=== PATIENT | male | born 1945 | race Caucasian/White ===

== ENCOUNTER 2018-05-11 08:06 | Outpatient (REF) | payer OTHER, SELFPAY ==
[2018-05-11 22:18] LABS: Abs Immature Grans 0.01 k/cumm (0.0-0.09); Absolute Basophil Count 0.03 k/cumm (0.0-0.2); Absolute Eosinophil Count 0.11 k/cumm (0.0-0.7); Absolute Lymphocyte Count 1.44 k/cumm (1.2-3.4); Absolute Monocyte Count 0.37 k/cumm (0.11-0.7); Absolute Neutrophil Count 3.04 k/cumm (1.2-6.7); Basophils % 0.6; Eosinophils % 2.2; HCT 52.7 % (40.0-50.0); HGB 17.3 g/dL (13.5-17.5); Immature Grans % 0.2; Lymphocytes % 28.8; Mean Corp. HGB Concentration 32.8 g/dL (32.0-36.0); Mean Corpuscular Hemoglobin 32.3 pg (27.0-33.0); Mean Corpuscular Volume 98.5 fL (80-95); Mean Platelet Volume 13.1 fL (8.0-11.0); Monocytes % 7.4; Neutrophils % 60.8; Platelet Count 141 x1000/uL (130-400); RBC 5.35 m/cumm (4.50-6.00); RBC Distribution Width 13.4 % (11.8-14.1)
[2018-05-11 22:23] LABS: ALT 40 U/L (12-78); AST 28 U/L (15-37); Albumin 4.1 g/dL (3.4-5.0); Alkaline Phosphatase 74 U/L (46-116); Anion Gap 7.8 mmol/L (3-11); BUN 20 mg/dL (7-18); Bilirubin, Total 0.9 mg/dL (0.2-1.0); CO2 29.2 mmol/L (21.0-32.0); CREATININE 1.07 mg/dL (0.70-1.30); Calcium 8.9 mg/dL (8.5-10.1); Chloride 103 mmol/L (98-107); Glucose 84 mg/dL (70-100); Potassium 3.5 mmol/L (3.5-5.1); Sodium 140 mmol/L (136-145); Total Protein 6.9 g/dL (6.4-8.2)
[2018-05-13 09:38] LABS: CEA 1.5 ng/ml
== END 2018-05-11 08:07 ==
LOC: LBN 08:06
PROVIDERS: PCP Internal Medicine; Visit Provider Internal Medicine Hematology & Oncology
DX: C18.9 Malignant neoplasm of colon, unspecified (principal)
CPT/HCPCS: 80053; 82378; 85025

== ENCOUNTER 2018-05-28 00:13 | Outpatient (CLI) | payer OTHER, SELFPAY ==
[2018-05-28] MEDS: Breeza Beverage 473 ML BTL PO ×2 (07:44→07:45)
[2018-05-28] MEDS: Omnipaque 350 MG/ML 50 ML BTL PO (07:44)
--- NOTE | 2018-05-28 09:38 | DI.CT_ITS ---
SYMPTOM/DIAGNOSIS: H/O COLON CA, S/P RT HEMICOLECTOMY, RESTAGING EXAMINATION CHEST, ABDOMEN AND PELVIC CT: Comparison is made with 10/10/16. Images were performed from the clavicles through the ischial tuberosities after IV and oral contrast. CHEST: No adenopathy, infiltrates or effusions are seen. No pulmonary nodules are identified. The pulmonary arteries are well opacified with IV contrast and no pulmonary emboli are seen. No suspicious bony abnormalities are seen. ABDOMEN AND PELVIS: There are small stable hyperdensities in the liver and a single hyperdensity in the spleen. The pancreas and adrenals are unremarkable. The patient is status post cholecystectomy. There are non obstructing stones at the lower pole of the left kidney. The prostate is mildly enlarged and presses on the base of the bladder. No focal bladder abnormality is seen. Right colectomy is again noted. No recurrent mass, adenopathy or ascites is seen. The small bowel is unremarkable. There is a small fatty containing hernia above the level of the umbilicus. IMPRESSION: Status post partial right colectomy. No evidence of metastatic disease or recurrent mass.
[2018-05-28] MEDS: Omnipaque 350 MG/ML 100 ML BTL IJ (09:41)
== END 2018-05-28 00:33 ==
PROVIDERS: PCP Internal Medicine; Visit Provider Internal Medicine Hematology & Oncology
DX: C18.2 Malignant neoplasm of ascending colon (principal); Z90.49 Acquired absence of other specified parts of digestive tract; Z98.0 Intestinal bypass and anastomosis status; N40.0 Benign prostatic hyperplasia without lower urinary tract symptoms
CPT/HCPCS: 74177; 71260; J3490; Q9967

== ENCOUNTER 2018-06-22 08:50 | Outpatient (REF) | payer OTHER, SELFPAY ==
[2018-06-22 22:40] LABS: Cholesterol 137 mg/dL (50-200); HDL Cholesterol 34 mg/dL (40-60); LDL CHOLESTEROL 67 mg/dL (<100); Triglyceride 250 mg/dL (30-150)
== END 2018-06-22 09:10 ==
LOC: NCHCN 08:50
PROVIDERS: PCP Internal Medicine; Visit Provider Internal Medicine
DX: I25.10 Atherosclerotic heart disease of native coronary artery without angina pectoris (principal); D75.1 Secondary polycythemia; G47.33 Obstructive sleep apnea (adult) (pediatric)
CPT/HCPCS: 80061; 83721

== ENCOUNTER 2018-07-19 08:26 | Outpatient (REF) | payer OTHER, SELFPAY ==
[2018-07-19 21:11] LABS: Abs Immature Grans 0.03 k/cumm (0.0-0.09); Absolute Basophil Count 0.03 k/cumm (0.0-0.2); Absolute Eosinophil Count 0.15 k/cumm (0.0-0.7); Absolute Lymphocyte Count 1.12 k/cumm (1.2-3.4); Absolute Monocyte Count 0.38 k/cumm (0.11-0.7); Absolute Neutrophil Count 3.37 k/cumm (1.2-6.7); Basophils % 0.6; HCT 47.1 % (40.0-50.0); Immature Grans % 0.6; Mean Corpuscular Hemoglobin 32.5 pg (27.0-33.0); Mean Corpuscular Volume 95.5 fL (80-95); Mean Platelet Volume 12.6 fL (8.0-11.0); Monocytes % 7.5; Neutrophils % 66.3; Platelet Count 145 x1000/uL (130-400); RBC 4.93 m/cumm (4.50-6.00); RBC Distribution Width 12.5 % (11.8-14.1); White Blood Cell Count 5.08 k/cumm (4.4-10.8)
[2018-07-19 21:54] LABS: ALT 49 U/L (12-78); AST 24 U/L (15-37); Albumin 3.5 g/dL (3.4-5.0); Alkaline Phosphatase 69 U/L (46-116); Anion Gap 6.4 mmol/L (3-11); BUN 25 mg/dL (7-18); Bilirubin, Total 0.9 mg/dL (0.2-1.0); CO2 31.6 mmol/L (21.0-32.0); CREATININE 0.95 mg/dL (0.70-1.30); Calcium 8.7 mg/dL (8.5-10.1); Chloride 101 mmol/L (98-107); Glucose 123 mg/dL (70-100); Potassium 3.6 mmol/L (3.5-5.1); Sodium 139 mmol/L (136-145); Total Protein 6.2 g/dL (6.4-8.2)
[2018-07-21 10:01] LABS: CEA 1.5 ng/ml
== END 2018-07-19 08:46 ==
LOC: LBN 08:26
PROVIDERS: PCP Internal Medicine; Visit Provider Internal Medicine Hematology & Oncology
DX: C18.2 Malignant neoplasm of ascending colon (principal)
CPT/HCPCS: 80053; 82378; 85025

== ENCOUNTER 2018-11-22 07:52 | Outpatient (REF) | payer OTHER, SELFPAY ==
[2018-11-22 21:04] LABS: Abs Immature Grans 0.02 k/cumm (0.0-0.09); Absolute Basophil Count 0.03 k/cumm (0.0-0.2); Absolute Eosinophil Count 0.18 k/cumm (0.0-0.7); Absolute Lymphocyte Count 1.22 k/cumm (1.2-3.4); Absolute Monocyte Count 0.47 k/cumm (0.11-0.7); Absolute Neutrophil Count 3.12 k/cumm (1.2-6.7); Basophils % 0.6; Eosinophils % 3.6; HCT 51.4 % (40.0-50.0); HGB 17.7 g/dL (13.5-17.5); Immature Grans % 0.4; Lymphocytes % 24.2; Mean Corp. HGB Concentration 34.4 g/dL (32.0-36.0); Mean Corpuscular Hemoglobin 32.2 pg (27.0-33.0); Mean Corpuscular Volume 93.6 fL (80-95); Mean Platelet Volume 13.2 fL (8.0-11.0); Monocytes % 9.3; Neutrophils % 61.9; Platelet Count 158 x1000/uL (130-400); RBC 5.49 m/cumm (4.50-6.00); RBC Distribution Width 12.4 % (11.8-14.1); White Blood Cell Count 5.04 k/cumm (4.4-10.8)
[2018-11-22 21:08] LABS: ALT 47 U/L (12-78); AST 27 U/L (15-37); Albumin 3.9 g/dL (3.4-5.0); Alkaline Phosphatase 80 U/L (46-116); Anion Gap 8.7 mmol/L (3-11); BUN 25 mg/dL (7-18); Bilirubin, Total 0.7 mg/dL (0.2-1.0); CO2 31.3 mmol/L (21.0-32.0); CREATININE 0.98 mg/dL (0.70-1.30); Calcium 8.7 mg/dL (8.5-10.1); Chloride 102 mmol/L (98-107); Glucose 123 mg/dL (70-100); Potassium 4.1 mmol/L (3.5-5.1); Sodium 142 mmol/L (136-145); Total Protein 6.6 g/dL (6.4-8.2)
[2018-11-25 15:05] LABS: CEA 2.9 ng/ml
== END 2018-11-22 08:12 ==
LOC: LBN 07:52
PROVIDERS: PCP Internal Medicine; Visit Provider Internal Medicine Hematology & Oncology
DX: D75.1 Secondary polycythemia (principal); Z85.038 Personal history of other malignant neoplasm of large intestine
CPT/HCPCS: 80053; 82378; 85025

== ENCOUNTER 2018-12-01 01:19 | Outpatient (CLI) | payer OTHER, SELFPAY ==
[2018-12-01] MEDS: Breeza Beverage 473 ML BTL PO ×2 (08:41→08:42)
[2018-12-01] MEDS: Omnipaque 350 MG/ML 50 ML BTL PO (08:42)
[2018-12-01] MEDS: Omnipaque 350 MG/ML 100 ML BTL IJ (10:08)
--- NOTE | 2018-12-01 10:08 | DI.CT_ITS ---
SYMPTOM/DIAGNOSIS: COLON CA, C18.2, F/U EXAM CHEST, ABDOMEN AND PELVIC CT: Comparison is made with 05/28/18. CT scan of the chest, abdomen and pelvis was performed following oral and intravenous contrast material. ABDOMEN AND PELVIS: There are stable tiny hypodense lesions in the liver, likely reflecting cysts. No suspicious hepatic masses are seen. The portal, superior mesenteric and splenic veins are patent. The patient is status post cholecystectomy. No significant biliary ductal dilatation is present. The pancreas is unremarkable. There is a stable hypodense lesion seen in the spleen. There is no evidence of an adrenal mass. The kidneys show normal and symmetric enhancement. No evidence of a solid renal mass or obstruction. There is a stable non obstructing in the lower pole of the left kidney. The urinary bladder is intact. The reproductive organs are unremarkable. There is atherosclerosis of the abdominal aorta but no aneurysmal dilatation is present. No significant abdominal or pelvic adenopathy, ascites or pneumoperitoneum is present. Post surgical changes are seen in the right colon. No evidence of bowel obstruction is seen. No evidence of a recurrent mass or inflammatory or infectious process is seen in the bowel. There is a large amount of stool seen in the colon. The portal, superior mesenteric and splenic veins are patent. Small fat containing anterior abdominal wall hernia are noted. There is a stable sclerotic focus in the left iliac bone, likely reflecting a bone island. 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 No aggressive osseous lesions are seen. Degenerative changes are present in the spine. IMPRESSION: No evidence of recurrent abdominal or pelvic mass. No evidence of abdominal or pelvic metastatic disease. CHEST: There is atherosclerosis of the thoracic aorta. The heart is mildly enlarged. No significant pericardial effusion is seen. Coronary artery calcifications are present. No significant thoracic adenopathy is present. No pleural effusion or pneumothorax is identified. No non calcified pulmonary nodules are seen. Dependent atelectatic changes are seen in the lungs. No focal consolidating infiltrates are present. The tracheobronchial tree is unremarkable. Degenerative changes are seen in the spine. No aggressive osseous lesions are present. IMPRESSION: No evidence of thoracic metastatic disease.
[2018-12-01] MEDS: Normal Saline Flush 10 ML SYR IVP (10:10)
== END 2018-12-01 01:39 ==
PROVIDERS: PCP Internal Medicine; Visit Provider Nurse Practitioner Adult Health
DX: C18.2 Malignant neoplasm of ascending colon (principal); K76.89 Other specified diseases of liver; K43.9 Ventral hernia without obstruction or gangrene; I51.7 Cardiomegaly; Z12.89 Encounter for screening for malignant neoplasm of other sites
CPT/HCPCS: 74177; 71260; J3490; Q9967

== ENCOUNTER 2018-12-20 10:24 | Outpatient (REF) | payer OTHER, SELFPAY ==
[2018-12-20 20:51] LABS: Abs Immature Grans 0.02 k/cumm (0.0-0.09); Absolute Basophil Count 0.02 k/cumm (0.0-0.2); Absolute Eosinophil Count 0.12 k/cumm (0.0-0.7); Absolute Lymphocyte Count 1.08 k/cumm (1.2-3.4); Absolute Monocyte Count 0.38 k/cumm (0.11-0.7); Absolute Neutrophil Count 3.06 k/cumm (1.2-6.7); Basophils % 0.4; Eosinophils % 2.6; HCT 47.9 % (40.0-50.0); HGB 16.4 g/dL (13.5-17.5); Immature Grans % 0.4; Lymphocytes % 23.1; Mean Corp. HGB Concentration 34.2 g/dL (32.0-36.0); Mean Corpuscular Hemoglobin 31.9 pg (27.0-33.0); Mean Corpuscular Volume 93.2 fL (80-95); Mean Platelet Volume 13.1 fL (8.0-11.0); Monocytes % 8.1; Neutrophils % 65.4; Platelet Count 156 x1000/uL (130-400); RBC 5.14 m/cumm (4.50-6.00); RBC Distribution Width 12.6 % (11.8-14.1); White Blood Cell Count 4.68 k/cumm (4.4-10.8)
== END 2018-12-20 10:44 ==
LOC: LBN 10:24
PROVIDERS: PCP Internal Medicine; Visit Provider Internal Medicine Hematology & Oncology
DX: D75.1 Secondary polycythemia (principal); Z85.038 Personal history of other malignant neoplasm of large intestine
CPT/HCPCS: 85025

== ENCOUNTER 2019-03-22 11:55 | Outpatient (REF) | payer OTHER, SELFPAY ==
[2019-03-22 21:37] LABS: Abs Immature Grans 0.01 k/cumm (0.0-0.09); Absolute Basophil Count 0.04 k/cumm (0.0-0.2); Absolute Eosinophil Count 0.14 k/cumm (0.0-0.7); Absolute Lymphocyte Count 1.29 k/cumm (1.2-3.4); Absolute Monocyte Count 0.45 k/cumm (0.11-0.7); Basophils % 0.8; Eosinophils % 2.7; HCT 49.8 % (40.0-50.0); Immature Grans % 0.2; Lymphocytes % 25.1; Mean Corp. HGB Concentration 34.1 g/dL (32.0-36.0); Mean Corpuscular Volume 93.6 fL (80-95); Monocytes % 8.8; Neutrophils % 62.4; Platelet Count 148 x1000/uL (130-400); RBC 5.32 m/cumm (4.50-6.00); RBC Distribution Width 12.3 % (11.8-14.1); White Blood Cell Count 5.13 k/cumm (4.4-10.8)
[2019-03-22 22:23] LABS: ALT 46 U/L (12-78); AST 20 U/L (15-37); Albumin 4.1 g/dL (3.4-5.0); Alkaline Phosphatase 81 U/L (46-116); Anion Gap 8.3 mmol/L (3-11); BUN 23 mg/dL (7-18); Bilirubin, Total 1.2 mg/dL (0.2-1.0); CO2 29.7 mmol/L (21.0-32.0); CREATININE 0.91 mg/dL (0.70-1.30); Calcium 9.2 mg/dL (8.5-10.1); Chloride 102 mmol/L (98-107); Glucose 117 mg/dL (70-100); Sodium 140 mmol/L (136-145); Total Protein 6.7 g/dL (6.4-8.2)
[2019-03-24 09:26] LABS: CEA 2.5 ng/ml
== END 2019-03-22 12:15 ==
LOC: LBN 11:55
PROVIDERS: PCP Internal Medicine; Visit Provider Internal Medicine Hematology & Oncology
DX: D75.1 Secondary polycythemia (principal); Z85.038 Personal history of other malignant neoplasm of large intestine
CPT/HCPCS: 80053; 82378; 85025

== ENCOUNTER 2019-03-25 15:12 | Outpatient (CLI) | payer OTHER, SELFPAY ==
[2019-03-25 16:15] LABS: Bilirubin, Direct 0.18 mg/dL (0.00-0.20); Bilirubin, Total 0.8 mg/dL (0.2-1.0)
== END 2019-03-25 15:32 ==
PROVIDERS: PCP Internal Medicine; Visit Provider Internal Medicine Hematology & Oncology
DX: E80.6 Other disorders of bilirubin metabolism (principal); C18.2 Malignant neoplasm of ascending colon
CPT/HCPCS: 36415; 82247; 82248

== ENCOUNTER 2019-05-02 16:48 | Outpatient (REF) | payer OTHER, SELFPAY ==
[2019-05-02 21:33] LABS: Calculated LDL 57 mg/dL; Cholesterol 136 mg/dL (50-200); HDL Cholesterol 33 mg/dL (40-60); TSH (W/Ref FT4) 2.31 uIU/mL (0.36-3.74); Triglyceride 231 mg/dL (30-150)
== END 2019-05-02 17:08 ==
LOC: NCHCN 16:48
PROVIDERS: PCP Internal Medicine; Visit Provider Internal Medicine
DX: I25.10 Atherosclerotic heart disease of native coronary artery without angina pectoris (principal); R53.83 Other fatigue
CPT/HCPCS: 80061; 83721; 84443

== ENCOUNTER → 2019-05-09 09:59 | Outpatient (BNVA) | payer OTHER, SELFPAY | PROVIDERS: PCP Internal Medicine; Referring Provider Internal Medicine; Visit Provider Physical Therapy Assistant | DX: Z12.11 Encounter for screening for malignant neoplasm of colon (principal); Z85.038 Personal history of other malignant neoplasm of large intestine ==

== ENCOUNTER 2019-05-30 09:00 | Day surgery (SDC) | payer OTHER, SELFPAY ==
--- NOTE | 2019-05-30 06:40 | W.COLOREPORT ---
Date of service: 05/30/19 Time of Service: 10:13 Colonoscopy Report Date of procedure: 05/30/19 Pre-op diagnosis general: Hx of colon Cancer Post-op diagnosis procedure note: same (and small polyp and moderate diverticulosis of descending and sigmoid colon) Procedure: Colonoscopy with polypectomy by forceps Surgeon: Kay Burgess Anesthesia proc note operative: other (General/ ASA 2/Scotty Ernst, MAURICE) Estimated blood loss (mL): 3 Pathology: other (descending polyp) Complications: None Disposition: same day Indications: Mr. Anguiano is a pleasant 74 year old male with a personal history of Colon Cancer. His last surveillance colonoscopy was normal. Risks, benefits and complications have been reviewed. Complications include but are not limited to bleeding, pain, perforation, missed small lesion/polyp, sore throat, aspiration and adverse reaction to the medications. Questions were entertained and answered to their satisfaction and they wished to proceed. No guarantees were given or implied. Prep: Miralax/Dulcolax Procedure Start Time: 10:13 Procedure End Time: 10:49 Retraction Time: 9 minutes Findings: One small sessile polyp Open anastamosis Moderate Diverticulosis Procedure Description: After informed consent was obtained the patient was taken to the procedure room and placed in a left decubitous position. Monitors were applied and a time out was done. The patients name, date of , procedure, allergies to medications and metal in their body was reviewed. The patient was then sedated. Once sedated and comfortable a rectal exam was done. External exam was normal. Internal exam revealed a normal sphincter tone and no palpable masses. The prostate felt smooth. The scope was then introduced and retro-flexed. No internal hemorrhoids, masses or polyps were identified. The scope was then advanced to the cecum with difficulty due to a tortuous colon. The TI and appendiceal orifice were identified. The prep was adequate. The scope was then slowly retracted over 9 minutes back into the rectum. Polyps were removed with cold forceps in the descending colon. There was moderate diverticulosis of the colon in the descending and sigmoid colon. The scope was removed and the patient was woken up and taken back to Same day surgery in stable condition. The patient tolerated the procedure well and there were no immediate complications. Follow up: The patient should follow up in 3 years unless they develop changes in bowel habits or other new gastrointestinal complaints.
--- NOTE | 2019-05-30 06:42 | W.PM.DSUDISC ---
Discharge Plan Disposition Patient Disposition: HOME Condition: Good Discharge Details Reason For Visit: colonoscopy Attending Provider: Kay Burgess Primary Care Provider: Johana Aguero Home Meds and New Rx's Prescriptions: Continued irbesartan 300 mg tablet 300 mg PO DAILY RF: 0 latanoprost 0.005 % drops 1 drp OP DAILY RF: 0 aspirin [Adult Aspirin Regimen] 81 mg tablet,delayed release (DR/EC) 81 mg PO DAILY RF: 0 chlorthalidone 25 mg tablet 12.5 mg PO DAILY RF: 0 brimonidine 0.025 % drops 1 drp OP QHS PRNRF: 0 simvastatin 40 MG tablet 20 mg PO HS RF: 0 Discontinued polyethylene glycol 3350 17 gram/dose powder 238 g PO ONCE Qty: 238 RF: 0 bisacodyl [Dulcolax (bisacodyl)] 5 mg tablet,delayed release (DR/EC) 5 mg PO ONCE Qty: 4 RF: 0 Discharge Instructions Instructions: Colonoscopy (DC), Diverticulosis (DC) Additional Instructions: Findings: Moderate diverticulosis and one small polyp Follow up: 3 years Please call if you develop: fevers >101.5 Nausea or Vomiting Abdominal pain that is not transient DAY SURGERY UNIT POST ENDOSCOPY INSTRUCTIONS 1. Because there will be medication in your system for the next 24 hours, you may feel a little sleepy. Your coordination will be affected. Therefore: a. Do not drive or operate dangerous equipment for 24 hours. b. Do not drink alcohol beverages for 24 hours (not even beer). c. Plan to go home and rest for the day. 2. Generally there are no restrictions on your activity after a day or so has gone by, but you may feel a bit fatigued for a few days. 3 After you arrive home you may have a light meal and return to a normal diet as you can tolerate it without feeling sick to your stomach. 4. After surgery, you may feel pain or discomfort. This should be only transient, but if it persists please contact your doctor. 5. If there are any questions regarding the findings of your procedure, please feel free to contact your doctor. 6. If you are unable to contact your doctor with a problem, contact the hospital at [phone]. 7. Continue all your regular medications unless directed otherwise. I understand the above instructions and have no questions. Signature of Patient or Responsible Adult Escort Date/Time Name of Responsible Adult Escort Signature of Nurse Date/Time Activity:: Activity as Tolerated Diet:: High Fiber diet Discharge Orders Discharge Orders: Discharge Order (Routine); Ordered 05/30/19 Ordered By: Kay Burgess DS: Diagnosis Discharge Diagnosis (1) S/P colonoscopy: Status: Acute (2) Diverticulosis: Status: Acute
[2019-05-30 09:23] VITALS: BP 146/88; PULSE 44; RESP 16; TEMP 36.1; O2SAT 99
[2019-05-30] MEDS: Lactated Ringers 1,000 ML 80 ML IV (09:38)
--- NOTE | 2019-05-30 10:14 | BOWEL_PTH ---
PATIENT: Michele Anguiano LOC: [facility] U#:[id number] AGE/SX: 74/M ROOM: RE05/30/[address]: Kay Burgess MD : 1945 BED: DIS: 05/30/2019 SPEC #: [id number] RECD: 05/30/19 12:57 STATUS: ANAYA REQ #: [id number] KELTON: 05/30/19 10:[address]: Kay Burgess DEPT: Surgical Specimen RECD BY: Janell Mike ENTERED: 05/30/19 12:58 SP TYPE: Bowel OTHR DR: Johana Aguero Tissues: 1 - BIOPSY BOWEL Procedures: GROSS AND MICRO LEVEL 4 Comments: [id number]
[2019-05-30 11:37] VITALS: BP 99/65; PULSE 60; RESP 16; TEMP 36; O2SAT 94
== END 2019-05-30 12:00 | disposition home or self-care (01) ==
LOC: SUR 09:01
PROVIDERS: PCP Internal Medicine; Visit Provider Surgery
PROC: 0DJD8ZZ Inspection of Lower Intestinal Tract, Via Natural or Artificial Opening Endoscopic (ICD-10-PCS; CPT 45378; principal; 2019-05-30 10:15)
DX: Z12.11 Encounter for screening for malignant neoplasm of colon (principal); K63.5 Polyp of colon; Z85.038 Personal history of other malignant neoplasm of large intestine; K57.30 Diverticulosis of large intestine without perforation or abscess without bleeding; Z90.49 Acquired absence of other specified parts of digestive tract; Z98.0 Intestinal bypass and anastomosis status; K63.89 Other specified diseases of intestine
CPT/HCPCS: 45380; 88305

== ENCOUNTER 2019-10-10 14:39 | Outpatient (REF) | payer OTHER, SELFPAY ==
[2019-10-10 21:33] LABS: Abs Immature Grans 0.01 k/cumm (0.0-0.09); Absolute Basophil Count 0.03 k/cumm (0.0-0.2); Absolute Eosinophil Count 0.08 k/cumm (0.0-0.7); Absolute Monocyte Count 0.38 k/cumm (0.11-0.7); Absolute Neutrophil Count 3.36 k/cumm (1.2-6.7); Basophils % 0.6; Eosinophils % 1.5; HCT 49.6 % (40.0-50.0); HGB 16.8 g/dL (13.5-17.5); Immature Grans % 0.2 %; Lymphocytes % 26.6; Mean Corp. HGB Concentration 33.9 g/dL (32.0-36.0); Mean Corpuscular Hemoglobin 31.7 pg (27.0-33.0); Mean Corpuscular Volume 93.6 fL (80-95); Mean Platelet Volume 12.5 fL (8.0-11.0); Monocytes % 7.2; Neutrophils % 63.9; Platelet Count 165 x1000/uL (130-400); RBC Distribution Width 12.4 % (11.8-14.1); White Blood Cell Count 5.26 k/cumm (4.4-10.8)
[2019-10-10 21:58] LABS: ALT 72 U/L (16-63); AST 32 U/L (15-37); Albumin 3.8 g/dL (3.4-5.0); Alkaline Phosphatase 78 U/L (46-116); Anion Gap 6.7 mmol/L (3-11); BUN 16 mg/dL (7-18); Bilirubin, Total 0.7 mg/dL (0.2-1.0); CO2 30.3 mmol/L (21.0-32.0); CREATININE 1.07 mg/dL (0.70-1.30); Calcium 8.8 mg/dL (8.5-10.1); Chloride 107 mmol/L (98-107); Glucose 116 mg/dL (74-106); Potassium 4.1 mmol/L (3.5-5.1); Sodium 144 mmol/L (136-145); Total Protein 6.1 g/dL (6.4-8.2)
[2019-10-13 10:05] LABS: CEA 1.4 ng/mL (See Note)
== END 2019-10-10 14:59 ==
LOC: LBN 14:39
PROVIDERS: PCP Internal Medicine; Visit Provider Internal Medicine Hematology & Oncology
DX: C18.2 Malignant neoplasm of ascending colon (principal)
CPT/HCPCS: 80053; 82378; 85025

== ENCOUNTER 2019-11-11 04:08 | Outpatient (CLI) | payer OTHER, SELFPAY ==
[2019-11-11] MEDS: Breeza Beverage 473 ML BTL PO ×2 (07:54→07:55)
[2019-11-11] MEDS: Omnipaque 350 MG/ML 50 ML BTL PO (07:54)
[2019-11-11 08:30] LABS: ALT 38 U/L (16-63); AST 21 U/L (15-37); Albumin 3.8 g/dL (3.4-5.0); Alkaline Phosphatase 75 U/L (46-116); Anion Gap 5.6 mmol/L (3-11); BUN 12 mg/dL (7-18); Bilirubin, Total 1.4 mg/dL (0.2-1.0); CO2 29.4 mmol/L (21.0-32.0); CREATININE 1.11 mg/dL (0.70-1.30); Calcium 8.4 mg/dL (8.5-10.1); Chloride 107 mmol/L (98-107); Glucose 120 mg/dL (74-106); Potassium 4.2 mmol/L (3.5-5.1); Sodium 142 mmol/L (136-145); Total Protein 6.7 g/dL (6.4-8.2)
[2019-11-11] MEDS: Omnipaque 350 MG/ML 100 ML BTL IJ (09:49)
[2019-11-11] MEDS: Normal Saline - Diluent 50 ML VIAL IV (10:03)
--- NOTE | 2019-11-11 10:03 | DI.CT_ITS ---
EXAM: CT CHEST/ABD/PEL W CLINICAL HISTORY: COLON CA, C18.2, S/P RT HEMICOLECTOMY, ELEVATED ALT, TECHNIQUE: Post IV and oral contrast. COMPARISON: CT CHEST/ABD/PEL W from 12/01/2018 FINDINGS: Chest CT: There is four-chamber cardiac enlargement. There is the coronary arteries are heavily meaghan cified. No pleural or pericardial effusions are seen. The aorta is normal in diameter. There is no evidence of adenopathy. There is mild peripheral fibrosis greater lower lobes posteriorly. No pulmo nary nodules are identified. Are flowing osteophytes in the thoracic spine. No lytic or blastic lesio ns are identified. Abdomen and pelvic CT: The patient is status post cholecystectomy. There is stable mild biliary dilat ation and a stable tiny superior liver cyst. The spleen, pancreas, kidneys and adrenals are unremarka ble. The previously noted cystic lesion in the spleen is has decreased in size. Increased stool seen throughout the colon. There are diverticula of the descending colon. There is no evidence of divertic ulitis. No mass is identified. There is no evidence of obstruction. A diverticulum is seen of the 2n d portion of the duodenum. The small bowel is otherwise unremarkable. The prostate is mildly enlarged . There is mild bladder wall thickening. Is no evidence of adenopathy, free air or free fluid. Ankylo sis of the SI joints are again noted. Degenerative disc changes and facet degenerative changes are se en. The aorta shows mild calcification and is normal in diameter. IMPRESSION: No evidence recurrence or metastatic disease in the abdomen. No evidence of metastatic disease in the chest.
== END 2019-11-11 04:28 ==
PROVIDERS: PCP Internal Medicine; Visit Provider Internal Medicine Hematology & Oncology
DX: C18.2 Malignant neoplasm of ascending colon (principal); I51.7 Cardiomegaly; Z12.89 Encounter for screening for malignant neoplasm of other sites; R74.0 Nonspecific elevation of levels of transaminase and lactic acid dehydrogenase [LDH]; N40.0 Benign prostatic hyperplasia without lower urinary tract symptoms; Z90.49 Acquired absence of other specified parts of digestive tract
CPT/HCPCS: 74177; 80053; 71260; J3490; Q9967

== ENCOUNTER 2019-11-18 13:41 | Outpatient (CLI) | payer OTHER, SELFPAY ==
[2019-11-18 14:05] LABS: Abs Immature Grans 0.02 k/cumm (0.0-0.09); Absolute Basophil Count 0.04 k/cumm (0.0-0.2); Absolute Eosinophil Count 0.17 k/cumm (0.0-0.7); Absolute Lymphocyte Count 1.53 k/cumm (1.2-3.4); Absolute Monocyte Count 0.45 k/cumm (0.11-0.7); Absolute Neutrophil Count 3.34 k/cumm (1.2-6.7); Basophils % 0.7; Eosinophils % 3.1; HCT 50.1 % (40.0-50.0); Immature Grans % 0.4 %; Lymphocytes % 27.6; Mean Corp. HGB Concentration 33.9 g/dL (32.0-36.0); Mean Corpuscular Volume 94.2 fL (80-95); Mean Platelet Volume 11.4 fL (8.0-11.0); Monocytes % 8.1; Neutrophils % 60.1; Platelet Count 182 x1000/uL (130-400); RBC 5.32 m/cumm (4.50-6.00); RBC Distribution Width 12.4 % (11.8-14.1); White Blood Cell Count 5.55 k/cumm (4.4-10.8)
[2019-11-18 14:23] LABS: ALT 34 U/L (16-63); AST 22 U/L (15-37); Albumin 3.7 g/dL (3.4-5.0); Alkaline Phosphatase 74 U/L (46-116); Anion Gap 7.2 mmol/L (3-11); BUN 21 mg/dL (7-18); Bilirubin, Direct 0.18 mg/dL (0.00-0.20); Bilirubin, Total 0.5 mg/dL (0.2-1.0); CO2 29.8 mmol/L (21.0-32.0); CREATININE 0.89 mg/dL (0.70-1.30); Calcium 8.4 mg/dL (8.5-10.1); Chloride 107 mmol/L (98-107); Glucose 110 mg/dL (74-106); Potassium 4.1 mmol/L (3.5-5.1); Sodium 144 mmol/L (136-145); Total Protein 6.6 g/dL (6.4-8.2)
== END 2019-11-18 14:01 ==
PROVIDERS: PCP Internal Medicine; Visit Provider Internal Medicine Hematology & Oncology
DX: C18.2 Malignant neoplasm of ascending colon (principal); R17 Unspecified jaundice
CPT/HCPCS: 36415; 80053; 82248; 85025

== ENCOUNTER 2020-04-09 10:24 | Outpatient (REF) | payer OTHER, SELFPAY ==
[2020-04-09 22:23] LABS: Glucose 115 mg/dL (74-106)
[2020-04-09 22:38] LABS: Hemoglobin A1C 5.7 % (3.8-5.6)
== END 2020-04-09 10:44 ==
LOC: NCHCN 10:24
PROVIDERS: PCP Internal Medicine; Visit Provider Internal Medicine
DX: Z00.00 Encounter for general adult medical examination without abnormal findings (principal); R73.09 Other abnormal glucose
CPT/HCPCS: 82947; 83036

== ENCOUNTER 2020-05-22 13:11 | Outpatient (REF) | payer OTHER, SELFPAY ==
[2020-05-22 21:20] LABS: Abs Immature Grans 0.01 10^3/uL (0.0-0.06); Absolute Basophil Count 0.04 10^3/uL (0.0-0.2); Absolute Eosinophil Count 0.08 10^3/uL (0.0-0.7); Absolute Lymphocyte Count 1.32 10^3/uL (1.2-3.4); Absolute Monocyte Count 0.47 10^3/uL (0.1-0.8); Absolute Neutrophil Count 3.68 10^3/uL (1.2-6.7); Basophils % 0.7; Eosinophils % 1.4; HCT 49.1 % (40.0-50.0); HGB 16.8 g/dL (13.5-17.5); Immature Grans % 0.2; Lymphocytes % 23.6; MCH 32.4 pg (27.0-33.0); MCHC 34.2 % (32.0-36.0); MCV 94.8 fL (80-95); MPV 12.8 fL (8.0-11.0); Monocytes % 8.4; Neutrophils % 65.7; Nucleated RBC 0 %; Platelet Count 143 10^3/uL (130-400); RBC 5.18 10^6/uL (4.36-5.78); RDW 12.1 % (11.8-14.1); RDW-SD 41.9 fL
[2020-05-22 21:36] LABS: ALT 35 U/L (16-63); AST 20 U/L (15-37); Albumin 3.8 g/dL (3.4-5.0); Alkaline Phosphatase 79 U/L (46-116); BUN 17 mg/dL (7-18); Bilirubin, Total 1.1 mg/dL (0.2-1.0); Calcium 8.7 mg/dL (8.5-10.1); Chloride 105 mmol/L (98-107); Glucose 127 mg/dL (74-106); Potassium 4.6 mmol/L (3.5-5.1); Sodium 139 mmol/L (136-145); Total Protein 6.2 g/dL (6.4-8.2)
[2020-05-23 19:29] LABS: CEA 2.2 ng/mL (See Note)
== END 2020-05-22 13:31 ==
LOC: LBN 13:11
PROVIDERS: PCP Internal Medicine; Visit Provider Internal Medicine Hematology & Oncology
DX: C18.2 Malignant neoplasm of ascending colon (principal)
CPT/HCPCS: 80053; 82378; 85025

== ENCOUNTER 2020-06-08 04:17 | Outpatient (CLI) | payer OTHER, SELFPAY ==
--- NOTE | 2020-06-08 08:30 | DI.CT_ITS ---
EXAM: CT CHEST/ABD/PEL W CLINICAL HISTORY: COLON CA,C18.2,S/P RT HEMICOLECTOMY,NEW WT LOSS,RESTAGING EXAM TECHNIQUE: Imaging Protocol: Axial computed tomography images with coronal and sagittal reformatted images were created and reviewed CONTRAST MATERIAL: Intravenous: Omnipaque 350 Contrast volume:100 mL Oral: Yes CT CHEST ABD PELVIS WITH CONTRAST from 10/31/2015 CT CHEST ABD PELVIS WITH CONTRAST from 10/10/[address] CHEST/ABD/PEL W from 12/01/[address] CHEST/ABD/PEL W from 12/01/[address] CHEST/ABD/PEL W from 11/11/[address] CHEST/ABD/PEL W from 11/11/2019 FINDINGS: CHEST: Tracheobronchial tree: Patent where visualized. Mediastinum and Falguni: No dominant adenopathy or fluid collection. Pulmonary parenchyma: No consolidation or dominant measurable mass. No architectural distortion. Mild atelectasis is seen in the lung bases. Pleura: No effusion or pneumothorax. Heart: Mild cardiomegaly. Marked coronary artery calcification. Significant pericardial effusion. Aorta: Thoracic aorta non-dilated. Atherosclerosis. Lymph nodes: Within normal limits. Bones:Degenerative changes. Soft tissues: Unremarkable. ABDOMEN: Liver: Normal density. There are stable cysts within the liver. Portal, Superior Mesenteric, and Splenic Veins: Unremarkable. Gallbladder and Biliary Tract: Status post cholecystectomy. Stable mild biliary ductal dilatation. Pancreas: Normal density, no abnormal calcifications or inflammatory process. Spleen: Normal. Adrenals: No masses seen. Kidneys: Normal size, contour and axis. There is a nonobstructing 1 cm stone in the lower pole of the left kidney. No masses seen. Abdominal Aorta: Abdominal portion non-dilated. Atherosclerosis. Bowel: No evidence of bowel obstruction. There is question of wall thickening at the enterocolic lyn stomosis in the right lower quadrant (series 11, image 43 and series 10, image 431). Colonic diverti culosis but no evidence of acute diverticulitis. Peritoneal Cavity: No ascites, collection or mesenteric inflammatory response. Lymph Nodes: Within normal limits. Bones: Ankylosis of the sacroiliac joints. Soft Tissues: Small fat containing umbilical hernia. Nonspecific round 2 x 2 x 2.7 cm hypodense area in the right iliopsoas muscle. PELVIS: Bladder: Symmetric distention, no gross wall thickening. Reproductive Organs: Enlarged prostate gland. Lymph Nodes: Within normal limits. Bones: Degenerative changes. IMPRESSION: 1. No evidence of thoracic metastatic disease. 2. Question of bowel wall thickening at the anastomosis in the right lower quadrant. Barium enema sh ould be considered for further evaluation. 3. Round 2 x 2 x 2.7 cm hypodense area in the right iliopsoas muscle. This is nonspecific. Correlat e with the patient's past medical history. Hematoma or seroma may be considered. Soft tissue mass c annot be excluded. Ultrasound may be considered for further evaluation. RADIATION DOSE DELIVERED: 1,977.81mGy.cm Total DLP DATA REPOSITORY: All CT scans at this facility are submitted to the National Radiology Data Registry (NRDR) Dose Index Registry (DIR) with the [employer] (A[employer]). RADIATION OPTIMIZATION: All CT scans at this facility use at least one of these dose optimization te chniques: automated exposure control; mA and/or kV adjustment per patient size (includes targeted exa ms where dose is matched to clinical indication); or iterative reconstruction.
[2020-06-08] MEDS: Breeza Beverage 473 ML BTL PO ×2 (08:32→08:33)
[2020-06-08] MEDS: Omnipaque 350 MG/ML 50 ML BTL PO (08:32)
[2020-06-08] MEDS: Normal Saline - Diluent 50 ML VIAL IV (10:06)
[2020-06-08] MEDS: Omnipaque 350 MG/ML 100 ML BTL IJ (10:06)
== END 2020-06-08 04:37 ==
PROVIDERS: PCP Internal Medicine; Visit Provider Internal Medicine Hematology & Oncology
DX: C18.2 Malignant neoplasm of ascending colon (principal); R63.4 Abnormal weight loss
CPT/HCPCS: 74177; 71260; J3490; Q9967

== ENCOUNTER 2020-06-22 04:13 | Outpatient (CLI) | payer OTHER, SELFPAY ==
--- NOTE | 2020-06-22 | DI.US_ITS ---
EXAM: US SOFT TISS ABD WALL/LOW BACK CLINICAL HISTORY: MASS OF ILIOPSOAS MUSCLE, M62.89,H/O COLON CA,F/U ABNL CT HYPODENSITY, TECHNIQUE: Ultrasound performed using standard protocol. COMPARISON: CT CT CHEST/ABD/PEL W from 06/08/2020 FINDINGS: Ultrasound examination was performed to evaluate a right ileo psoas mass identified recent abdominal CT. Ultrasound a graphically, this mass lies laterally to the external iliac vessels in the iliopsoa s. Mass measures 41 x 18 x 36 millimeters in diameter and contains predominantly cystic components w ith significant internal debris, dependent solid components may be present as well and the septations the lobulated cystic mass are thickened. IMPRESSION: Indeterminate mixed echogenicity predominantly cystic mass of the right iliopsoas as described above. In the setting of known colon carcinoma, the possibility of metastatic lesion would have to be cons idered, although other etiologies including hematoma are diagnostic possibilities.. Tissue sampling recommended if clinically appropriate, alternatively, PET-CT may be considered. DATA REPOSITORY:
== END 2020-06-22 04:33 ==
PROVIDERS: PCP Internal Medicine; Visit Provider Internal Medicine Hematology & Oncology
DX: M62.89 Other specified disorders of muscle (principal); C18.9 Malignant neoplasm of colon, unspecified
CPT/HCPCS: 76705

== ENCOUNTER → 2020-06-29 10:29 | Outpatient (BNVA) | payer OTHER, SELFPAY | PROVIDERS: PCP Internal Medicine; Referring Provider Internal Medicine; Visit Provider Physical Therapy Assistant | DX: K63.9 Disease of intestine, unspecified (principal); Z86.010 Personal history of colon polyps; Z85.038 Personal history of other malignant neoplasm of large intestine | CPT/HCPCS: 99213 ==

== ENCOUNTER 2020-07-09 09:11 | Day surgery (SDC) | payer OTHER, SELFPAY ==
--- NOTE | 2020-07-09 06:59 | COLE_ITS ---
Date of service: 07/09/20 Time of Service: 10:02 Colonoscopy Report Date of procedure: 07/09/20 Pre-op diagnosis general: Hx of colon cancer , abnormal CT scan Post-op diagnosis procedure note: other (normal colonoscopy) Procedure: Colonoscopy with biopsies Surgeon: Kay Burgess Anesthesia proc note operative: other (General/ ASA 2/Johanna Nelson, MAURICE) Estimated blood loss (mL): 3 Pathology: other (ileo-colic anastamosis bx) Complications: None Disposition: same day Indications: 75 y/o male with history of colon cancer in 2014, presents for colonoscopy pre-op. He is referred for diagnostic Colonoscopy by Dr. Onofre for further work up of findings from a CT scan on 06/10/20 which showed question of bowel wall thickening at the anastomosis in the right lower quadrant. This CT scan showed a hypodense area in the iliopsoas muscle. His last screening Colonoscopy was in 2019, which was remarkable for a small hyperplastic polyp and diverticulosis. He denies a family history of colon cancer. He denies any change s in bowel habits including bloody or black tarry stools, abdominal pain, diarrhea or constipation. He denies constitutional symptoms. Denies use of marijuana or any other recreational or illegal drugs. Prep: Miralax/Dulcolax Procedure Start Time: 10:02 Procedure End Time: 10:49 Retraction Time: 16 minutes Findings: Normal colonoscopy Normal ileocolic anastamosis normal ileum Procedure Description: After informed consent was obtained the patient was taken to the procedure room and placed in a left decubitous position. Monitors were applied and a time out was done. The patients name, date of , p rocedure, allergies to medications and metal in their body was reviewed. The patient was then sedated. Once sedated and comfortable a rectal exam was done. External exam was normal. Internal exam revealed a normal sphincter tone and no palpable masses. The prostate felt normal. The scope was then introduced and retro-flexed. No internal hemorrhoids were identified. The scope was then advanced to the cecum with some difficulty. There was a very sharp corner at the splenic flexure. The ileo-colic anastamosis was identified. The prep was adequate. The scope was advanced through the anas tamosis into the ileum for about 6 cm. The ileum was normal. There were no masses. Biopsies were done of the anastamosis. The anastamosis looked normal. No thickening was identified. The scope was then slowly retracted over 16 minutes back into the rectum. There were no polyps. There was moderate diverticulosis of the descending and sigmoid colon. The tattoo was identified in the distalsigmoid colon/proximal rectum. No polyps were identified. The scope was removed and the patient was woken up and taken back to Same day surgery in stable condition. The patient tolerated the procedure well and there were no immediate complications. Follow up: The patient should follow up in 2 years unless they develop changes in bowel habits or other new gastrointestinal complaints.
--- NOTE | 2020-07-09 07:00 | W.PM.DSUDISC ---
Discharge Plan Disposition Patient Disposition: HOME Condition: Good Discharge Details Reason For Visit: colonoscopy Attending Provider: Kay Burgess Primary Care Provider: Johana Aguero Home Meds and New Rx's Prescriptions: Continued latanoprost 0.005 % drops 1 drp OP DAILY RF: 0 aspirin [Adult Aspirin Regimen] 81 mg tablet,delayed release (DR/EC) 81 mg PO DAILY RF: 0 brimonidine 0.025 % drops 1 drp OP QHS PRNRF: 0 Eliquis 5 mg tablet 5 mg PO BID RF: 0 amlodipine 2.5 mg tablet 2.5 mg PO DAILY RF: 0 hydrochlorothiazide 12.5 mg tablet 12.5 mg PO DAILY RF: 0 losartan 100 mg tablet 100 mg PO DAILY RF: 0 metoprolol tartrate 25 mg tablet 25 mg PO DAILY RF: 0 simvastatin 40 MG tablet 20 mg PO HS RF: 0 Discontinued polyethylene glycol 3350 17 gram/dose powder 238 g PO ONCE Qty: 238 RF: 0 bisacodyl [Dulcolax (bisacodyl)] 5 mg tablet,delayed release (DR/EC) 5 mg PO ONCE Qty: 4 RF: 0 Discharge Instructions Instructions: Diverticulosis (DC) Additional Instructions: Findings: diverticulosis Normal anastamosis No polyps Follow up: 2-3 years Please call if you develop: fevers >101.5 Nausea or Vomiting Abdominal pain that is not transient DAY SURGERY UNIT POST ENDOSCOPY INSTRUCTIONS 1. Because there will be medication in your system for the next 24 hours, you may feel a little sleepy. Your coordination will be affected. Therefore: a. Do not drive or operate dangerous equipment for 24 hours. b. Do not drink alcohol beverages for 24 hours (not even beer). c. Plan to go home and rest for the day. 2. Generally there are no restrictions on your activity after a day or so has gone by, but you may feel a bit fatigued for a few days. 3 After you arrive home you may have a light meal and return to a normal diet as you can tolerate it without feeling sick to your stomach. 4. After surgery, you may feel pain or discomfort. This should be only transient, but if it persists please contact your doctor. 5. If there are any questions regarding the findings of your procedure, please feel free to contact your doctor. 6. If you are unable to contact your doctor with a problem, contact the hospital at [phone]. 7. Continue all your regular medications unless directed otherwise. I understand the above instructions and have no questions. Signature of Patient or Responsible Adult Escort Date/Time Name of Responsible Adult Escort Signature of Nurse Date/Time Activity:: Activity as Tolerated Diet:: High Fiber Diet Discharge Orders Discharge Orders: Discharge Order (Routine); Ordered 07/09/20 Ordered By: Kay Burgess
[2020-07-09 09:33] VITALS: BP 152/97; PULSE 53; RESP 16; TEMP 36.2; O2SAT 100
[2020-07-09] MEDS: Lactated Ringers 1,000 ML 80 ML IV (09:40)
--- NOTE | 2020-07-09 10:37 | BOWEL_PTH ---
PATIENT: Michele Anguiano LOC: [facility] U#:[id number] AGE/SX: 75/M ROOM: RE07/09/[address]: Kay Burgess MD : 1945 BED: DIS: 07/09/2020 SPEC #: [id number] RECD: 07/09/20 11:46 STATUS: ANAYA REQ #: [id number] KELTON: 07/09/20 10:[address]: Kay Burgess DEPT: Surgical Specimen RECD BY: Janell Mike ENTERED: 07/09/20 11:47 SP TYPE: Bowel OTHR DR: Johana Aguero Tissues: 1 - BIOPSY BOWEL Procedures: GROSS AND MICRO LEVEL 4 Comments: [id number]
[2020-07-09 11:32] VITALS: BP 128/97; PULSE 78; RESP 18; TEMP 35.9; O2SAT 98
== END 2020-07-09 11:52 | disposition home or self-care (01) ==
LOC: SUR 09:11
PROVIDERS: PCP Internal Medicine; Visit Provider Surgery
PROC: 0DJD8ZZ Inspection of Lower Intestinal Tract, Via Natural or Artificial Opening Endoscopic (ICD-10-PCS; CPT 45378; principal; 2020-07-09 09:30)
DX: Z85.038 Personal history of other malignant neoplasm of large intestine (principal); D75.1 Secondary polycythemia; Z79.01 Long term (current) use of anticoagulants; Z98.0 Intestinal bypass and anastomosis status
CPT/HCPCS: 45380; 88305; J2001

== ENCOUNTER 2020-07-12 01:28 | Outpatient (CLI) | payer OTHER, SELFPAY ==
--- NOTE | 2020-07-12 07:28 | DI.US_ITS ---
APPROVED REPORT EXAM: Comprehensive 2D, Doppler, and color-flow Echocardiogram Patient Location: Out-Patient Casing Running Machine Tender: Jahaira Simmons RDCS (AE) Indications: Persistent Atrial Fibrillation Other Information Study Quality: Adequate Conclusion Normal left ventricular chamber size and wall thickness. Estimated ejection fraction is 50 to 55%. There are no segmental wall motion abnormalities Normal right ventricular size and systolic function Atria are moderately dilated Trileaflet aortic valve with trace regurgitation Mild mitral annular calcification. There is eccentric moderate mitral regurgitation Structurally normal tricuspid valve with mild regurgitation. Normal estimated right ventricular syst olic pressure Structurally normal pulmonic valve with trace regurgitation Wall motion Left Ventricle The left ventricle is normal size. The left ventricular systolic function is normal. The left ventric ular ejection fraction is within the normal range. There is normal left ventricular wall thickness. T here is normal LV segmental wall motion. There is no ventricular septal defect visualized. LVEF is 50 -55%. Right Ventricle The right ventricle is normal size. The right ventricular systolic function is normal. The RVSP is 24 .1 mmHg. Atria Left atrium is moderately dilated. Right atrium is moderately dilated. The interatrial septum is inta ct with no evidence for an atrial septal defect. Aortic Valve The aortic valve is normal in structure. Aortic valve is trileaflet. There is no aortic valvular sten osis. Trace aortic regurgitation. Mitral Valve Mild mitral annular calcification. No evidence of mitral valve stenosis. Moderate mitral regurgitatio n. Mitral regurgitation jet is eccentrically directed. Tricuspid Valve The tricuspid valve is normal in structure. There is no tricuspid valve stenosis. Mild tricuspid regu rgitation. Pulmonic Valve The pulmonary valve is normal in structure. There is no pulmonic valvular stenosis. Trace pulmonic re gurgitation. Great Vessels Aortic root is moderately dilated. The ascending aorta is mildly dilated. The ascending aorta is mil dly dilated. IVC is normal in size and collapses >50% with inspiration. Pericardium There is no pericardial effusion. 2D Dimensions IVSD d PLAX 1.12 cm M: 0.6-1.2 LV Vol A2C d MOD 150.3 mL LVPW d PLAX 1.16 cm M: 0.6 - 1.2 LV Vol A4C d MOD 161.3 mL LVID d PLAX 4.76 cm M: 4.2 - 5.8 LA vol/ BSA A2C s A-L 46.0 mL/m2 LVDs 3.60 cm M: 2.5 - 4.0 LA vol/ BSA A4C s A-L 45.7 mL/m2 Ao Root d 4.28 cm M: 3.1 - 3.7 LA Vol/ BSA Biplane s A-L 46.6 mL/m2 RA Area A4C 23.69 cm2 LA Area A4C s MOD 29.26 cm2 RA Vol/ BSA A4C s A-L 30.9 mL/m2 LA Area A2C s MOD 28.89 cm2 Ao Asc Diam d 4.10 cm M: 2.6 - 3.4 LV EF A4C MOD 51.5 % LV EF Teichholz 46.7 % LV EF A2C MOD 48.7 % LVEF (Winkler's) 50.24 % M: 52 - 72 LV EF Biplane MOD 50.2 % LV Volume 115.25 mL M: 62 - 150 SV 80.06 mL LV Volume Index 51.45 mL/m2 M: 34 - 74 SV Index 35.74 mL/m2 LV Vol Biplane MOD 159.4 mL FS 23.30 % M-Mode TAPSE 1.76 cm (M/F) >1.7 LV Diastology MV E' medial 0.072 (>0.07 m/s) MV E Vmax 0.75 (0.4-1.3 m/s) LV E/e MED 10.35 (<14) MV E' lateral 0.122 (>0.1 m/s) LV E/e LAT 6.10 (<14) MV E/E' medial 10.40 MV E/E' lateral 6.10 Aortic Valve LVOT Area 4.51 cm2 AoV Area Vmax 3.87 cm2 LVOT Vmax 0.54 m/s AoV Area/ BSA (Vmax) 1.73 cm2/m2 LVOT Mean Long. 0.35 m/s NATHANIEL Mean Long. 3.07 cm2 LVOT Peak Grad 1.2 mmHg NATHANIEL Mean Long. Index 1.37 cm2/m2 LVOT Mean Grad 0.6 mmHg AR DT 2131 msec LVOT VTI 0.089 m AR PHT 618 msec LVOT Diam s 2.35 cm AoV Vmax 0.63 m/s Velocity Ratio 0.85 AoV Mean Long. 0.51 m/s AoV Peak Grad 1.6 mmHg LVOT SV 40.09 mL AoV Mean Grad 1.1 mmHg AoV VTI 0.114 m AoV Area VTI 3.51 cm2 AoV Area/ BSA (VTI) 1.56 cm/m2 Mitral Valve MV DT 208 (160-240 msec) MV PHT 60 msec MV Area PHT 3.64 cm2 Pulmonary Valve PV Vmax 0.77 (0.5-1.5 m/s) RVOT Peak Gr. 0.67 mmHg PV Peak Grad 2.4 mmHg RVOT Mean Gr. 0.35 mmHg PV Mean Grad 1.2 mmHg RVOT VTI 0.082 m PV VTI 0.120 m RVOT Vmax 0.41 m/s Tricuspid Valve TR Peak Grad 21.1 mmHg TR Vmax 2.30 m/s RA Pressure 3.00 mmHg RVSP (TR) 24.1 mmHg
== END 2020-07-12 01:48 ==
PROVIDERS: PCP Internal Medicine; Visit Provider Internal Medicine Cardiovascular Disease
DX: I08.1 Rheumatic disorders of both mitral and tricuspid valves (principal)
CPT/HCPCS: 93306

== ENCOUNTER 2020-07-17 13:27 | Outpatient (REF) | payer OTHER, SELFPAY ==
[2020-07-17 20:55] LABS: Anion Gap 6.8 mmol/L (3-11); BUN 22 mg/dL (7-18); CO2 30.2 mmol/L (21.0-32.0); CREATININE 0.97 mg/dL (0.70-1.30); Calcium 8.8 mg/dL (8.5-10.1); Chloride 103 mmol/L (98-107); Glucose 92 mg/dL (74-106); Potassium 4.2 mmol/L (3.5-5.1); Sodium 140 mmol/L (136-145)
== END 2020-07-17 13:47 ==
LOC: NCHCN 13:27
PROVIDERS: PCP Internal Medicine; Visit Provider Internal Medicine
DX: I10 Essential (primary) hypertension (principal)
CPT/HCPCS: 80048

== ENCOUNTER → 2020-07-24 13:06 | Outpatient (BNVA) | payer OTHER, SELFPAY | PROVIDERS: PCP Internal Medicine; Referring Provider Internal Medicine; Visit Provider Internal Medicine Cardiovascular Disease | DX: I25.2 Old myocardial infarction (principal); I34.0 Nonrheumatic mitral (valve) insufficiency; I48.91 Unspecified atrial fibrillation; Z79.01 Long term (current) use of anticoagulants | CPT/HCPCS: 99203; 99214 ==

== ENCOUNTER → 2020-08-27 13:26 | Outpatient (BNVA) | payer OTHER, SELFPAY | PROVIDERS: PCP Internal Medicine; Referring Provider Internal Medicine; Visit Provider Student in an Organized Health Care Education/Training Program | DX: M16.11 Unilateral primary osteoarthritis, right hip (principal); M24.851 Other specific joint derangements of right hip, not elsewhere classified; Z85.038 Personal history of other malignant neoplasm of large intestine | CPT/HCPCS: 99201; 99441; 99442 ==

== ENCOUNTER 2020-09-19 16:38 | Outpatient (REF) | payer OTHER, SELFPAY ==
[2020-09-19 21:59] LABS: PSA, Screening 0.8 ng/mL (0.0-6.5)
== END 2020-09-19 16:58 ==
LOC: NCHCN 16:38
PROVIDERS: PCP Internal Medicine; Visit Provider Internal Medicine
DX: Z12.5 Encounter for screening for malignant neoplasm of prostate (principal)
CPT/HCPCS: 84153

== ENCOUNTER → 2021-03-05 08:54 | Outpatient (BNVA) | payer OTHER, SELFPAY | PROVIDERS: PCP Internal Medicine; Referring Provider Internal Medicine; Visit Provider Internal Medicine Cardiovascular Disease | DX: I48.11 Longstanding persistent atrial fibrillation (principal); Z79.01 Long term (current) use of anticoagulants; I25.2 Old myocardial infarction; I34.0 Nonrheumatic mitral (valve) insufficiency | CPT/HCPCS: 99214 ==

== ENCOUNTER 2021-03-25 01:16 | Outpatient (CLI) | payer MEDICARE, SELFPAY ==
--- NOTE | 2021-03-25 07:30 | DI.NM_ITS ---
APPROVED REPORT Exam: Exercise Treadmill Patient Location: Out-Patient Room/Bed: Stress Nurse: Krysta Flores RN Ordering Provider:DONALDO KIRBY, Contact Number: [phone] BMI: 28.12 Baseline Rhythm: Atrial Fibrillation Comment: Frequent multifocal PVCs, bigeminy, couplet Indications: Coronary artery disease, atrial fibrillation Medical History Medical History: Atrial fibrillation, hypertension, hyperlipidemia, CVD, PR 2010 w/ stents x3, mitral regurgitation, pulmonary embolism, KRISTIAN w/ CPAP, colon ca, diverticulitis, glaucoma, polycythemia Cardiac Medications: metoprolol tartrate, losartan, simvastatin, aspirin, apixaban, hydrochlorothiazi de Allergies: NKA Cardiac Risk Factors: Hypertension, hyperlipidemia, CVD, family hx Previous Cardiac Procedures: 2009- PCI w/ stents x3 Pretest Chest Pain Characteristics: None Exercise History: Sedentary Physical Disabilities: None Lung Sounds: Clear to auscultation Heart Sounds: Irregular Stress Test Details Test: Exercise stress testing was performed using a Morgan protocol. Nuclear Acquisition: Rest Tc-99m/Stress Tc-99m 1 day Rest Isotope: Tc-99m Sestamibi. Dose: 12.0 Date: 03/25/2021 Injection Time: 0940 Stress Isotope: Tc-99m Sestamibi. Dose: 37.2 Date: 03/25/2021 Injection Time: 1212 HR Resting HR Supine: 90 bpm Max Heart Rate (APMHR): 146.818191 bpm Resting HR Standin bpm Target HR (85% APMHR): 124.748899 bpm Max HR Achieved: 176 bpm % of APMHR: 120.55 Recovery HR: 90 bpm HR response to stress: Normal HR response to stress BP Resting BP Supine: 150/84 mmHg Resting BP Standin/88 mmHg Max BP: 186/74 mmHg Recovery BP: 152/80 mmHg BP response to stress: Normal blood pressure response to stress. ECG Resting ECG: Atrial Fibrillation Ectopy: Frequent multifocal PVCs, bigeminy, couplet Stress ECG: Atrial Fibrillation ST Change: No significant ST segment changes noted Arrhythmia: Frequent multifocal PVCs, couplet Recovery ECG: Atrial Fibrillation Recovery ST Change: No significant ST segment changes noted Recovery Arrhythmia: Frequent multifocal PVCs, couplets, 3 beat run ventricular tachycardia Clinical Reason for Termination: Terminated by stress RN due to AF with RVR Stress Symptoms: General Fatigue Exercise duration: 5 min59 sec Highest Stage Reached: Stage 2: 2.5 mph at 12% grade. Exercise capacity: 7.05 METs Rate Pressure Product: 50165 Stress ECG Conclusion 1. Patient exercised for 5 minutes (7 METS). Exercise was stopped by the nurse due to A. fib with RV R. 2. Patient no symptoms suggestive of ischemia. 3. There is no evidence of ischemia on the ECG portion of the exam. Stress Test Summary STAGE Time (mins) Speed (mph) Grade (%) HR BP SYMPTOMS METS Supine 90 150/84 Standing 86 150/88 SpO2 98% 1 3 1.7 10 140 172/88 SpO2 98% 4.6 2 6 2.5 12 169 SpO2 94% 7 1 min recovery 132 186/74 SpO2 98% 3 min recovery 95 170/78 6 min recovery 90 152/80 MPI Conclusion The patient's ejection fraction was 42% with stress. There were no wall motion abnormalities. There is no evidence of ischemia in the imaging portion of the exam. This represents a normal SPECT stress test. Radiologist Interpretation Radiologist agrees with Feed Management Advisor's Interpretation. Radiologist Interpretation by: Kamila Hightower MD Interpretation Date/Time: 03/26/2021 08:49:23
== END 2021-03-25 01:36 ==
PROVIDERS: PCP Internal Medicine; Visit Provider Internal Medicine Cardiovascular Disease
DX: I25.2 Old myocardial infarction (principal); I48.91 Unspecified atrial fibrillation; I49.3 Ventricular premature depolarization; I47.2 Ventricular tachycardia; R00.8 Other abnormalities of heart beat; I10 Essential (primary) hypertension; E78.5 Hyperlipidemia, unspecified; Z82.49 Family history of ischemic heart disease and other diseases of the circulatory system
CPT/HCPCS: 78452; 93016; 93018; 93017

== ENCOUNTER → 2021-04-05 11:37 | Outpatient (BNVA) | payer OTHER, SELFPAY | PROVIDERS: PCP Internal Medicine; Visit Provider Internal Medicine Cardiovascular Disease | DX: I48.91 Unspecified atrial fibrillation (principal); I34.0 Nonrheumatic mitral (valve) insufficiency; I25.2 Old myocardial infarction; R60.0 Localized edema | CPT/HCPCS: 99214; 99213 ==

== ENCOUNTER → 2021-07-05 11:24 | Outpatient (BNVA) | payer MEDICARE, SELFPAY | PROVIDERS: PCP Internal Medicine; Visit Provider Internal Medicine Cardiovascular Disease | DX: I25.2 Old myocardial infarction (principal); I48.19 Other persistent atrial fibrillation; I34.0 Nonrheumatic mitral (valve) insufficiency; I10 Essential (primary) hypertension; Z79.01 Long term (current) use of anticoagulants | CPT/HCPCS: 99214; 99213 ==

== ENCOUNTER 2021-09-25 15:13 | Outpatient (REF) | payer MEDICARE, SELFPAY ==
[2021-09-25 15:01] LABS: ALT 53 U/L (16-63); AST 29 U/L (15-37); Alkaline Phosphatase 80 U/L (46-116); Anion Gap 6.1 mmol/L (3-11); BUN 17 mg/dL (7-18); Bilirubin, Total 1.1 mg/dL (0.2-1.0); CO2 31.9 mmol/L (21.0-32.0); CREATININE 0.9 mg/dL (0.70-1.30); Calcium 8.9 mg/dL (8.5-10.1); Calculated LDL 45 mg/dL (<100); Chloride 102 mmol/L (98-107); Cholesterol 134 mg/dL (<200); Glucose 108 mg/dL (74-106); HDL Cholesterol 34 mg/dL (40-60); Sodium 140 mmol/L (136-145); Total Protein 6.9 g/dL (6.4-8.2); Triglyceride 277 mg/dL (<150)
[2021-09-25 15:08] LABS: Hemoglobin A1C 5.8 % (<5.7)
== END 2021-09-25 15:14 | disposition home or self-care (01) ==
LOC: NCHCN 15:13
PROVIDERS: PCP Internal Medicine; Visit Provider Internal Medicine
DX: I10 Essential (primary) hypertension (principal); R73.09 Other abnormal glucose; E78.5 Hyperlipidemia, unspecified
CPT/HCPCS: 80053; 80061; 83036

== ENCOUNTER → 2022-01-03 10:31 | Outpatient (BNVA) | payer MEDICARE, SELFPAY | PROVIDERS: PCP Internal Medicine; Visit Provider Internal Medicine Cardiovascular Disease | DX: I10 Essential (primary) hypertension (principal); I48.91 Unspecified atrial fibrillation; I34.0 Nonrheumatic mitral (valve) insufficiency; I25.2 Old myocardial infarction | CPT/HCPCS: 99214; 99213 ==

== ENCOUNTER → 2022-08-04 10:38 | Outpatient (BNVA) | payer MEDICARE, SELFPAY | PROVIDERS: PCP Internal Medicine; Visit Provider Internal Medicine Cardiovascular Disease | DX: R73.03 Prediabetes (principal); R60.0 Localized edema; I25.10 Atherosclerotic heart disease of native coronary artery without angina pectoris; I48.91 Unspecified atrial fibrillation; I10 Essential (primary) hypertension; I34.0 Nonrheumatic mitral (valve) insufficiency; G47.33 Obstructive sleep apnea (adult) (pediatric); I25.2 Old myocardial infarction | CPT/HCPCS: 99214 ==

== ENCOUNTER 2022-12-22 13:23 | Outpatient (REF) | payer MEDICARE, SELFPAY ==
[2022-12-22 20:55] LABS: HGB 16.8 g/dL (13.5-17.5); MCH 32.5 pg (27.0-33.0); MCHC 34.3 % (32.0-36.0); MCV 95 fL (80-95); MPV 12.2 fL (8.0-11.0); Platelet Count 159 10^3/uL (130-400); RBC 5.17 10^6/uL (4.36-5.78); RDW 11.9 % (11.8-14.1); RDW-SD 41.2 fL; WBC 5.07 10^3/uL (4.4-10.8)
[2022-12-22 21:08] LABS: ALT 52 U/L (16-63); AST 35 U/L (15-37); Albumin 3.5 g/dL (3.4-5.0); Alkaline Phosphatase 74 U/L (46-116); Anion Gap 5.4 mmol/L (3-11); BUN 20 mg/dL (7-18); Bilirubin, Total 0.7 mg/dL (0.2-1.0); CO2 27.6 mmol/L (21.0-32.0); CREATININE 0.9 mg/dL (0.70-1.30); Calcium 8.6 mg/dL (8.5-10.1); Calculated LDL 43 mg/dL (<100); Chloride 106 mmol/L (98-107); Cholesterol 137 mg/dL (<200); Estimated GFR 89.07 (mL/min/1.73m2); Glucose 150 mg/dL (74-106); HDL Cholesterol 28 mg/dL (40-60); Potassium 4.2 mmol/L (3.5-5.1); Sodium 139 mmol/L (136-145); Total Protein 6.5 g/dL (6.4-8.2); Triglyceride 333 mg/dL (<150)
[2022-12-22 21:18] LABS: Hemoglobin A1C 6.3 % (<5.7)
== END 2022-12-22 13:24 | disposition home or self-care (01) ==
LOC: NCHCN 13:23
PROVIDERS: PCP Internal Medicine; Visit Provider Internal Medicine
DX: I10 Essential (primary) hypertension (principal); R73.03 Prediabetes; E78.5 Hyperlipidemia, unspecified
CPT/HCPCS: 80053; 80061; 85027; 83036

== ENCOUNTER 2023-01-21 00:56 | Outpatient (CLI) | payer MEDICARE, SELFPAY ==
--- NOTE | 2023-01-21 10:22 | DI.US_ITS ---
APPROVED REPORT EXAM: Comprehensive 2D, Doppler, and color-flow Echocardiogram Patient Location: Out-Patient Clinical Research Specialist: Darwin Cruz RDMS, [place] Indications: check mitral regurg, mukesh, afib Other Information Study Quality: Adequate Conclusion Normal left ventricular wall thickness and chamber size. Ejection fraction is approximately 45%. Th ere is diastolic septal flattening suggesting right ventricular pressure overload Right ventricle is mildly dilated and hypocontractile Both atria are mildly dilated Aortic valve is trileaflet, mildly sclerotic with mild regurgitation Mildly thickened mitral leaflets with mild to moderate regurgitation Normal tricuspid valve with mild regurgitation. Estimated right ventricular systolic pressure is 30 mmHg Mildly dilated aortic root and ascending aorta Wall motion Left Ventricle The left ventricle is normal size. Left ventricular systolic function is mild to moderately decreased . There is normal left ventricular wall thickness. There is global hypokinesis of the left ventricle. Flattened septum consistent with right ventricular pressure overload. There is no ventricular septal defect visualized. LVEF is 45%. Right Ventricle The right ventricle is mildly dilated Right ventricle is mildly hypokinetic. The RVSP is 29.4 mmHg. Atria Left atrium is mildly dilated. Right atrium is mildly dilated. The interatrial septum is intact with no evidence for an atrial septal defect. Aortic Valve The aortic valve is mildly sclerotic Aortic valve is trileaflet. There is no aortic valvular stenosis . Mild aortic regurgitation. Mitral Valve Mildly thickened mitral leaflets No evidence of mitral valve stenosis. Mild to moderate mitral regurg itation. Tricuspid Valve The tricuspid valve is normal in structure. There is no tricuspid valve stenosis. Mild tricuspid regu rgitation. Pulmonic Valve The pulmonary valve is normal in structure. There is no pulmonic valvular stenosis. Trace pulmonic re gurgitation. Great Vessels Aortic root is mildly dilated. The ascending aorta is mildly dilated. Aortic arch is not well visual ized. IVC is normal in size and collapses >50% with inspiration. Pericardium There is no pericardial effusion. 2D Dimensions IVSD d PLAX 1.02 cm M: 0.6-1.2 LV Vol A2C d MOD 136.1 mL LVPW d PLAX 1.05 cm M: 0.6 - 1.2 LV Vol A4C d MOD 159.6 mL LVID d PLAX 4.53 cm M: 4.2 - 5.8 LA vol/ BSA A4C s A-L 39.2 mL/m2 LVDs 3.70 cm M: 2.5 - 4.0 LA Area A4C s MOD 28.17 cm2 Ao Root d 4.09 cm M: 3.1 - 3.7 LV EF A4C MOD 35.6 % Ao Asc Diam d 3.64 cm M: 2.6 - 3.4 LV EF A2C MOD 36.3 % LV EF Teichholz 36.9 % LV EF Biplane MOD 37.2 % LVEF (Winkler's) 37.19 % M: 52 - 72 SV 54.23 mL LV Volume 104.51 mL M: 62 - 150 SV Index 23.50 mL/m2 LV Volume Index 45.24 mL/m2 M: 34 - 74 LV Vol Biplane MOD 145.8 mL FS 17.60 % LV Diastology MV E' medial 0.111 (>0.07 m/s) MV E Vmax 0.85 (0.4-1.3 m/s) LV E/e MED 7.60 (<14) MV E' lateral 0.157 (>0.1 m/s) LV E/e LAT 5.40 (<14) MV E/E' medial 7.63 MV E/E' lateral 5.40 Aortic Valve LVOT Area 4.48 cm2 AoV Area Vmax 4.16 cm2 LVOT Vmax 0.54 m/s AoV Area/ BSA (Vmax) 1.80 cm2/m2 LVOT Mean Long. 0.37 m/s NATHANIEL Mean Long. 4.08 cm2 LVOT Peak Grad 1.2 mmHg NATHANIEL Mean Long. Index 1.77 cm2/m2 LVOT Mean Grad 0.6 mmHg AR DT 3419 msec LVOT VTI 0.101 m AR PHT 992 msec LVOT Diam s 2.35 cm AoV Vmax 0.58 m/s Velocity Ratio 0.93 AoV Mean Long. 0.40 m/s AoV Peak Grad 1.3 mmHg LVOT SV 45.14 mL AoV Mean Grad 0.7 mmHg AoV VTI 0.093 m AoV Area VTI 4.87 cm2 AoV Area/ BSA (VTI) 2.11 cm/m2 Mitral Valve MV DT 128 (160-240 msec) MV PHT 37 msec MV Area PHT 5.91 cm2 Pulmonary Valve PV Vmax 0.68 (0.5-1.5 m/s) RVOT Peak Gr. 0.44 mmHg PV Peak Grad 1.9 mmHg RVOT Vmax 0.33 m/s PV Mean Grad 1.0 mmHg PV VTI 0.128 m Tricuspid Valve TR Peak Grad 26.3 mmHg TR Vmax 2.57 m/s RA Pressure 3.00 mmHg RVSP (TR) 29.4 mmHg
== END 2023-01-21 01:16 ==
LOC: DI 00:57
PROVIDERS: PCP Internal Medicine; Visit Provider Internal Medicine Cardiovascular Disease
DX: G47.33 Obstructive sleep apnea (adult) (pediatric) (principal); I25.10 Atherosclerotic heart disease of native coronary artery without angina pectoris; I34.0 Nonrheumatic mitral (valve) insufficiency; I48.91 Unspecified atrial fibrillation
CPT/HCPCS: 93306

== ENCOUNTER → 2023-01-29 10:28 | Outpatient (BNVA) | payer MEDICARE, SELFPAY | PROVIDERS: PCP Internal Medicine; Visit Provider Internal Medicine Cardiovascular Disease | DX: I25.2 Old myocardial infarction (principal); I34.0 Nonrheumatic mitral (valve) insufficiency; I10 Essential (primary) hypertension; G47.33 Obstructive sleep apnea (adult) (pediatric); E11.9 Type 2 diabetes mellitus without complications | CPT/HCPCS: 99215 ==

== ENCOUNTER 2023-02-03 00:55 | Outpatient (CLI) | payer MEDICARE, SELFPAY ==
--- NOTE | 2023-02-03 07:21 | DI.NM_ITS ---
APPROVED REPORT Exam: Exercise Treadmill Patient Location: Out-Patient Room/Bed: Stress Nurse: Ines Camilo RN Ordering Provider:DONALDO KIRBY, Contact Number: [phone] BMI: 28.12 Baseline Rhythm: Atrial Fibrillation, PVC's Indications: New L/V dysfunction, H/O CAD, cardiomyopathy Medical History Medical History: Cardiomyopathy, KRISTIAN, CAD, HTN, mitral reguritation, a fib, osteoarthritis, PE,hx [place] (2009), Cardiac Medications: Simvastatin, nitro, metoprolol succinate, losartan, HCTZ, aspirin, apixaban Allergies: NKA Cardiac Risk Factors: Family hx, HTN, prediabetes, CVD, former smoker, HLD Previous Cardiac Procedures: Cardiac cath w/ RAJNI x3 (2009 after [place]) Pretest Chest Pain Characteristics: None Exercise History: Indeterminate Physical Disabilities: None Lung Sounds: Clear to auscultation Heart Sounds: Irregular Stress Test Details Test: Exercise stress testing was performed using a Morgan protocol. Nuclear Acquisition: Rest Tc-99m/Stress Tc-99m 1 day Rest Isotope: Tc-99m Sestamibi. Dose: 10.0 Date: 02/03/2023 Injection Time: 0900 Stress Isotope: Tc-99m Sestamibi. Dose: 30.0 Date: 02/03/2023 Injection Time: 1027 HR Resting HR Supine: 75 bpm Max Heart Rate (APMHR): 145.350564 bpm Resting HR Standin bpm Target HR (85% APMHR): 123.106242 bpm Max HR Achieved: 174 bpm % of APMHR: 120.00 Recovery HR: 76 bpm HR response to stress: Accelerated HR response to stress BP Resting BP Supine: 126/84 mmHg Resting BP Standin/96 mmHg Max BP: 174/98 mmHg Recovery BP: 146/82/ mmHg BP response to stress: Normal blood pressure response to stress. ECG Resting ECG: Atrial Fibrillation Ectopy: Occasional PVC's Stress ECG: Atrial Fibrillation ST Change: No significant ST segment changes noted Arrhythmia: Frequent multifocal PVC's, couplets Recovery ECG: Atrial Fibrillation Recovery ST Change: No significant ST segment changes noted Recovery Arrhythmia: Frequent multifocal PVC's, couplets, triplets, 4 beat run VT, bigeminy Clinical Reason for Termination: Target HR Achieved (surpassed), increasing ectopy Stress Symptoms: Moderate dyspnea Exercise duration: 05 min59 sec Highest Stage Reached: Stage 2: 2.5 mph at 12% grade. Exercise capacity: 7.05 METs Angina Score: None Hernández Treadmill Score: 5.5 Rate Pressure Product: [id number] Stress ECG Conclusion 1. Resting electrocardiogram showed atrial fibrillation, vertical axis, late transition 2. Patient exercised on the Morgan protocol and completed a workload of 7.05 METS limited by dyspnea 3. Accelerated heart rate response to exercise. The patient achieved greater than 100% of predicted heart rate for age 4. Electrocardiographic portion of the test did not demonstrate any myocardial ischemia 5. Atrial fibrillation was present throughout with sporadic PVCs and couplets 6. See MPI report Hernández Treadmill Score is 5.5 which is Low risk. Stress Test Summary STAGE Time (mins) Speed (mph) Grade (%) HR BP SpO2 SYMPTOMS METS Supine 75 126/84 Standing 69 138/96 1 3 1.7 10 141 162/102 4.5 2 6 2.5 12 150 7 1 min recovery 133 174/98 3 min recovery 82 146/102 6 min recovery 76 146/82 MPI Conclusion Myocardial perfusion is normal. There is no ischemia or evidence of prior infarction Ejection fraction is 43% with mild global hypokinesis Radiologist Interpretation Radiologist Interpretation by: Norberto Tobias MD Interpretation Date/Time: 02/04/2023 18:38:10
== END 2023-02-03 01:15 ==
LOC: DI 00:55
PROVIDERS: PCP Internal Medicine; Visit Provider Internal Medicine Cardiovascular Disease
DX: I25.10 Atherosclerotic heart disease of native coronary artery without angina pectoris (principal); I42.9 Cardiomyopathy, unspecified; I48.91 Unspecified atrial fibrillation
CPT/HCPCS: 78452; 93016; 93018; 93017

== ENCOUNTER → 2023-02-13 12:38 | Outpatient (BNVA) | payer MEDICARE, SELFPAY | PROVIDERS: PCP Internal Medicine; Referring Provider Internal Medicine; Visit Provider Internal Medicine Cardiovascular Disease ==

== ENCOUNTER 2023-12-22 10:21 | Outpatient (REF) | payer MEDICARE, SELFPAY ==
[2023-12-22 15:32] LABS: Hemoglobin A1C 6.4 % (<5.7)
[2023-12-22 15:40] LABS: ALT 34 U/L (16-63); AST 25 U/L (15-37); Albumin 3.6 g/dL (3.4-5.0); Alkaline Phosphatase 78 U/L (46-116); Anion Gap 6.8 mmol/L (3-11); BUN 20 mg/dL (7-18); Bilirubin, Total 0.9 mg/dL (0.2-1.0); CO2 30.2 mmol/L (21.0-32.0); CREATININE 0.9 mg/dL (0.70-1.30); Calcium 9.1 mg/dL (8.5-10.1); Chloride 107 mmol/L (98-107); Estimated GFR 88.51 (mL/min/1.73m2); Glucose 97 mg/dL (74-106); Potassium 4.2 mmol/L (3.5-5.1); Sodium 144 mmol/L (136-145); Total Protein 6.5 g/dL (6.4-8.2)
== END 2023-12-22 10:22 | disposition home or self-care (01) ==
LOC: NCHCN 10:21
PROVIDERS: PCP Internal Medicine; Visit Provider Internal Medicine
DX: R73.03 Prediabetes (principal)
CPT/HCPCS: 80053; 83036

== ENCOUNTER 2024-03-22 11:51 | Outpatient (REF) | payer MEDICARE, SELFPAY ==
[2024-03-22 14:49] LABS: HCT 49.4 % (40.0-50.0); HGB 16.3 g/dL (13.5-17.5); MCH 31.8 pg (27.0-33.0); MCV 96 fL (80-95); MPV 12.7 fL (8.0-11.0); Platelet Count 131 10^3/uL (130-400); RBC 5.13 10^6/uL (4.36-5.78); RDW 12.6 % (11.8-14.1); WBC 5.44 10^3/uL (4.4-10.8)
[2024-03-22 15:08] LABS: Anion Gap 5.7 mmol/L (3-11); BUN 25 mg/dL (7-18); CO2 28.3 mmol/L (21.0-32.0); CREATININE 1.1 mg/dL (0.70-1.30); Calculated LDL 35 mg/dL (<100); Chloride 108 mmol/L (98-107); Cholesterol 88 mg/dL (<200); Estimated GFR 69.14 (mL/min/1.73m2); Glucose 132 mg/dL (74-106); HDL Cholesterol 39 mg/dL (40-60); Potassium 4.3 mmol/L (3.5-5.1); Sodium 142 mmol/L (136-145); Triglyceride 71 mg/dL (<150)
[2024-03-22 15:12] LABS: Hemoglobin A1C 6.1 % (<5.7)
== END 2024-03-22 11:52 | disposition home or self-care (01) ==
LOC: NCHCN 11:51
PROVIDERS: PCP Internal Medicine; Visit Provider Internal Medicine
DX: R73.03 Prediabetes (principal)
CPT/HCPCS: 80048; 80061; 85027; 83036

== ENCOUNTER → 2024-07-26 13:01 | Outpatient (BNVA) | payer MEDICARE, SELFPAY | PROVIDERS: PCP Internal Medicine; Referring Provider Internal Medicine; Visit Provider Surgery | DX: Z12.11 Encounter for screening for malignant neoplasm of colon (principal) ==

== ENCOUNTER 2024-08-01 10:45 | Day surgery (SDC) | payer MEDICARE, SELFPAY ==
--- NOTE | 2024-07-31 15:59 | W.PM.DSUDISC ---
Date of service: 08/01/24 Time of Service: 12:39 Discharge Plan Disposition Patient Disposition: Home Condition: Good Discharge Details Reason For Visit: screening colonoscopy Attending Provider: Ghanshyam Benitez Primary Care Provider: Johana Aguero Home Meds and New Rx's Prescriptions: Continued latanoprost 0.005 % drops 1 drp OP DAILY brimonidine 0.025 % drops 1 drp OP QHS PRN atorvastatin 40 mg tablet 40 mg PO DAILY losartan 100 mg tablet 100 mg PO DAILY simvastatin 40 mg tablet 40 mg PO HS Patient Comments: pt. states he is taking atorvastastin nitroglycerin [Nitrostat] 0.4 mg tablet, sublingual 0.4 mg sublingual Q5M PRN Rx Instructions: do not exceed 3 doses per episode carvedilol 25 mg tablet 25 mg PO BID Rx Instructions: must administer with a meal/food dapagliflozin propanediol [Farxiga] 5 mg tablet 5 mg PO DAILY Held Eliquis 5 mg tablet 5 mg PO BID Hold Instructions: Resume on 08/02/24. Discontinued polyethylene glycol 3350 17 gram/dose powder 238 g PO ONCE Qty: 238 0RF Rx Instructions: take per colonoscopy instructions bisacodyl [Dulcolax (bisacodyl)] 5 mg tablet,delayed release (DR/EC) 5 mg PO ONCE Qty: 4 0RF Rx Instructions: take per colonoscopy instructions Discharge Instructions Instructions: Colon polyps, Diverticulosis Additional Instructions: Michele, was very nice seeing you today, and I hope you were comfortable during the procedure. Everything went very smoothly. I did find to remove a single polyp today. This will be sent off for testing. As you probably know, polyps, and a number of different varieties, and the nature of the polyp can influence the timing of your next colonoscopy. You also have fairly extensive diverticulosis. Diverticula are weak spots in the muscular part of the colon wall that typically accumulate as we age. There is also some evidence of internal hemorrhoid, although these can be exacerbated by the bowel prep itself. I will attach some basic information here about diverticulosis as well as colorectal polyps. Because of the removal of the polyp, I would like you to hold your Eliquis until tomorrow. At that point, you can resume it like you normally take it. The results from the pathology report will take about a week or 2, but once we have those, my office will be in touch with recommendations for your next colonoscopy. If you have any questions in the meantime, please do not hesitate to ask. 1. If tolerated, consume a soft, low fiber diet for 1-2 days. 2[address] Do not drive, drink alcohol, operate machinery, make critical decisions, or do activities that require coordination or balance for 24 hours. 3. Because air was put into your colon during the procedure, expelling air from your rectum (passing gas or farting) is normal. 4. You may not have a bowel movement for 1-3 days because of the colonoscopy prep. This is normal. 5. Go directly to the emergency room if you notice any of the following: Develop chills (warm to touch), or if you have a thermometer and your temperature is above 101 Difficulty breathing or difficultly swallowing Persistent vomiting Severe abdominal pain, other than gas cramps Severe chest pain Black, tarry stools Any bleeding ? exceeding one tablespoon 6. Call your physician if the site where your intravenous was started becomes red, swollen, painful, and warm to touch. 7. Your physician has reviewed your pre-procedure medications. Please continue to take those medications as previously ordered. You will be given specific information/education regarding any changes to your medications before leaving. Stand Alone Forms: Anesthesia Discharge Inst., Aime Tadeo (DSU) Activity:: Activity as Tolerated Diet:: As Tolerated Discharge Orders Discharge Orders: Discharge Order (Routine); Ordered 07/31/24 Ordered By: Ghanshyam Benitez DS: Diagnosis Discharge Diagnosis (1) Encounter for screening colonoscopy: Status: Acute Asessment and Plan: Follow-up on polypectomy results
--- NOTE | 2024-07-31 16:00 | W.COLOREPORT ---
Date of service: 08/01/24 Time of Service: 12:43 Colonoscopy Report Date of procedure: 08/01/24 Pre-op diagnosis general: screening colonoscopy Post-op diagnosis procedure note: other (Diverticulosis, internal hemorrhoids, colon polyp) Procedure: colonoscopy with polypectomy Surgeon: Ghanshyam Benitez Anesthesia Type: General:No Airway Estimated blood loss (mL): 5 Pathology: other (0.5 cm flat polyp at 25 cm) Complications: None Disposition: same day Indications: Michele is a 79 year old man who needs his next screening colonoscopy Prep: Miralax/Dulcolax Procedure Start Time: 12:07 Procedure End Time: 12:28 Retraction Time: 14 Findings: Internal hemorrhoids, pandiverticulosis, 0.5 cm flat polyp at 25 cm Procedure Description: After the induction of anesthesia, and with the patient in left lateral decubitus position, I began by performing an external anorectal exam.? Perineum and skin were normal, as was the anal verge.? There was no evidence of external hemorrhoids.? Next, I performed a digital rectal exam.? I did not appreciate any abnormal findings.? Next, I advanced a colonoscope into the rectal vault.? I performed retroflexion.? There are internal hemorrhoids.? Using insufflation, I then advanced the colonoscope beyond the rectal folds and into the sigmoid colon before advancing towards the right side.? I advanced the camera to the ileocolic anastomosis, was able to traverse it with ease.? There was no evidence of any pathology in this area. I then began withdrawing the colonoscope using repeated irrigation as necessary for full evaluation of the colonic mucosa. ?Around 30 cm from the anal verge was an area of previous colonoscopic tattoo. Several passes were taken across this area, and everything appeared normal. Approximately 5 cm away, at 25 cm from the anal verge was 0.5 cm flat polyp. This was removed in piecemeal with cold forceps with minimal bleeding. Once the scope was withdrawn to the level of the rectum, great care was taken to examine portions of the rectal folds.? Finally, the scope was withdrawn and the patient was brought to the same-day surgery recovery unit as the anesthetic wore off. ?The findings and instructions were shared with the patient prior to discharge. Troy Bowel Prep Troy Bowel Prep Right Colon: 3 (Patient has had a right hemicolectomy) Left Colon: 3 Transverse Colon: 3 Total Score: 9
[2024-08-01 11:22] VITALS: BP 152/88; PULSE 70; RESP 16; TEMP 36.2; O2SAT 97
[2024-08-01] MEDS: Normal Saline Flush 10 ML SYR IV (11:40)
--- NOTE | 2024-08-01 11:43 | ANES.PREOP_ITS ---
General Info Date of Service Date Performed: 08/01/24 Height: 6 ft 3 in Weight: 93.8 kg Body Mass Index (BMI): 25.8 Surgical Procedure: Operation Date: 08/01/24 12:05 Proposed Procedure Side Surgeon raymond Bentiez MD Meds Allergies and Home Medications Allergies Allergy/AdvReac Type Severity Reaction Status Date / Time No Known Allergies Allergy Verified 08/01/24 11:15 Home Medication ?Medication ?Instructions ?Recorded brimonidine 0.025 % eye drops 1 drp ophthalmic (eye) QHS PRN 04/12/19 latanoprost 0.005 % eye drops 1 drp ophthalmic (eye) DAILY 05/09/19 apixaban 5 mg tablet (Eliquis) 5 mg PO BID 06/29/20 losartan 100 mg tablet 100 mg PO DAILY 06/29/20 simvastatin 40 mg tablet 40 mg PO HS 03/05/21 nitroglycerin 0.4 mg sublingual 0.4 mg sublingual Q5M PRN 05/01/22 tablet (Nitrostat) carvedilol 25 mg tablet 25 mg PO BID 07/11/24 dapagliflozin propanediol 5 mg 5 mg PO DAILY 07/11/24 tablet (Farxiga) atorvastatin 40 mg tablet 40 mg PO DAILY 07/26/24 Current Visit Medications: Current Medications Generic Name Dose Route Start Last Admin Trade Name Freq PRN Reason Stop Dose Admin IV Miscellaneous Supplies 1 each 08/01/24 06:00 Iv Access IV 08/01/24 23:59 DIRECTED KITTY Ondansetron HCl 4 mg 07/31/24 16:07 Ondansetron 4 Mg/2 Ml Vial IVP 08/30/24 16:06 Q4H PRN PRN Nausea / Vomiting Sodium Chloride 0 ml 08/01/24 06:00 08/01/24 11:40 Normal Saline Flush 10 Ml Syr IV 08/01/24 23:59 10 ml PRN PRN Administration Sodium Chloride 0 ml 08/01/24 06:00 Normal Saline 10 Ml Vial IJ 08/01/24 23:59 DIRECTED PRN Sterile Water 0 ml 08/01/24 06:00 Water,Injection,Sterile 10 Ml Vial IJ 08/01/24 23:59 DIRECTED PRN PFSH Active Problems Active Problems: Problem Status Onset Code Encounter for screening colonoscopy Acute Z12.11 Cardiomyopathy Acute I42.9 KRISTIAN (obstructive sleep apnea) Chronic G47.33 CAD (coronary artery disease) Chronic I25.10 Elevated hemoglobin A1c Acute R73.09 Screening for colon cancer Acute Z12.11 Hypertension Chronic I10 Paralabral cyst of right hip Acute M24.851 Osteoarthritis of right hip Acute M16.11 History of malignant neoplasm of colon Acute Z85.038 Normal colonoscopy Acute Mitral regurgitation Chronic I34.0 Atrial fibrillation Chronic I48.91 Bowel wall thickening Acute K63.9 Diverticulosis Acute ~05/30/19 K57.90 History of myocardial infarction Acute ~01/2010 I25.2 Medical History Medical History Hemangioma 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 Pulmonary embolism Polycythemia Hearing loss Glaucoma Surgical History Surgical History Hx of heart artery stent x 3 Cholecystectomy S/P colonoscopy (~05/30/19) Hx laparoscopic cholecystectomy S/P right hemicolectomy colonoscopy to anastamosis (05/21/16) Tobacco Smoking/Tobacco Use Status: Never Alcohol Alcohol Intake: current Alcohol intake frequency: 0-2 drinks per day Alcohol type: wine Substance Use Substance use: Never Substance use type: does not use Details: alcohol: t-4 Vital Signs and Lab Results Vital Signs Most Recent Vital Signs in EMR: Most Recent Vital Signs Temp Pulse Resp BP Pulse Ox 36.2 C L 70 16 152/88 H 97 08/01/24 11:22 08/01/24 11:22 08/01/24 11:22 08/01/24 11:22 08/01/24 11:22 Point of Care Results Point of Care Results: Finger Stick Blood Glucose 82 08/01/24 11:30 Lab Results Blood Type / Crossmatch: No Data to Display Complete Blood Count: No Data to Display Complete Metabolic Panel: No Data to Display Liver Function Panel: No Data to Display Coagulation Panel: No Data to Display Cardiac Panel: No Data to Display Arterial Blood Gas: No Data to Display Venous Blood Gas: No Data to Display Pancreas Panel: No Data to Display Thyroid Panel: No Data to Display Infectious Disease: No Data to Display Blood Cultures: No Data to Display Toxicology Panel: No Data to Display Imaging and Studies Imaging and Studies Study information below may be from another EMR and interpreted by another provider. Please see original notes in EMR for more complete details. Stress Test Summary: Patient Name: Michele Anguiano Unit #: [id number] Loc: Ordering Provider: Donaldo Vasquez M.D. Status: REG CLI Primary Care Provider: Johana Aguero Date of Exam: 02/03/23 Sex: M Admission Date: 02/03/23 : 1945 Age: 77 APPROVED REPORT Exam: Exercise Treadmill Patient Location: Out-Patient Room/Bed: Stress Nurse: Ines Camilo RN Ordering Provider:DONALDO VASQUEZ, Contact Number: [phone] BMI: 28.12 Baseline Rhythm: Atrial Fibrillation, PVC's Indications: New L/V dysfunction, H/O CAD, cardiomyopathy Medical History Medical History: Cardiomyopathy, KRISTIAN, CAD, HTN, mitral reguritation, a fib, osteoarthritis, PE,hx MN (2009), Cardiac Medications: Simvastatin, nitro, metoprolol succinate, losartan, HCTZ, aspirin, apixaban Allergies: NKA Cardiac Risk Factors: Family hx, HTN, prediabetes, CVD, former smoker, HLD Previous Cardiac Procedures: Cardiac cath w/ RAJNI x3 (2010 after MN) Pretest Chest Pain Characteristics: None Exercise History: Indeterminate Physical Disabilities: None Lung Sounds: Clear to auscultation Heart Sounds: Irregular Stress Test Details Test: Exercise stress testing was performed using a Morgan protocol. Nuclear Acquisition: Rest Tc-99m/Stress Tc-99m 1 day Rest Isotope: Tc-99m Sestamibi. Dose: 10.0 Date: 02/03/2023 Injection Time: 0900 Stress Isotope: Tc-99m Sestamibi. Dose: 30.0 Date: 02/03/2023 Injection Time: 1027 HR Resting HR Supine: 75 bpmMax Heart Rate (APMHR): 145.248892 bpm Resting HR Standin bpmTarget HR (85% APMHR): 123.193722 bpm Max HR Achieved: 174 bpm % of APMHR: 120.00 Recovery HR: 76 bpm HR response to stress: Accelerated HR response to stress BP Resting BP Supine: 126/84 mmHg Resting BP Standin/96 mmHg Max BP: 174/98 mmHg Recovery BP: 146/82/ mmHg BP response to stress: Normal blood pressure response to stress. ECG Resting ECG: Atrial Fibrillation Ectopy: Occasional PVC's Stress ECG: Atrial Fibrillation ST Change: No significant ST segment changes noted Arrhythmia: Frequent multifocal PVC's, couplets Recovery ECG: Atrial Fibrillation Recovery ST Change: No significant ST segment changes noted Recovery Arrhythmia: Frequent multifocal PVC's, couplets, triplets, 4 beat run VT, bigeminy Clinical Reason for Termination: Target HR Achieved (surpassed), increasing ectopy Stress Symptoms: Moderate dyspnea Exercise duration: 05 min59 sec Highest Stage Reached: Stage 2: 2.5 mph at 12% grade. Exercise capacity: 7.05 METs Angina Score: None Hernández Treadmill Score: 5.5 Rate Pressure Product: 82544 Stress ECG Conclusion 1. Resting electrocardiogram showed atrial fibrillation, vertical axis, late tr ansition 2. Patient exercised on the Morgan protocol and completed a workload of 7.05 METS limited by dyspnea 3. Accelerated heart rate response to exercise. The patient achieved greater than 100% of predicted heart rate for age 4. Electrocardiographic portion of the test did not demonstrate any myocardial ischemia 5. Atrial fibrillation was present throughout with sporadic PVCs and couplets 6. See MPI report Hernández Treadmill Score is 5.5 which is Low risk. Stress Test Summary STAGETime (mins)Speed (mph)Grade (%)[id number] Fdkgrv03870/84 Vcctskik91583/96 131.959435013/1024.5 [id number] 1 min [id number]/98 3 min hmwbokqf11556/102 6 min [id number]/82 MPI Conclusion Myocardial perfusion is normal. There is no ischemia or evidence of prior infarction Ejection fraction is 43% with mild global hypokinesis Radiologist Interpretation Radiologist Interpretation by: Norberto Tobias MD Interpretation Date/Time: 02/04/2023 18:38:10 Ordered By: Donaldo Vasquez M.D. CC: Echocardiogram Summary: Patient Name: Michele Anguiano Unit #: [id number] Loc: Ordering Provider: Donaldo Vasquez M.D. Status: REG [facility] Primary Care Provider: Johana Aguero Date of Exam: 01/21/23 Sex: M Admission Date: 01/21/23 : 1945 Age: 77 APPROVED REPORT EXAM: Comprehensive 2D, Doppler, and color-flow Echocardiogram Patient Location: Out-Patient Laundry Washer: Darwin Cruz RDMS, RVT Indications: check mitral regurg, kristian, afib Other Information Study Quality: Adequate Conclusion Normal left ventricular wall thickness and chamber size. Ejection fraction is approximately 45%. There is diastolic septal flattening suggesting right ventricular pressure overload Right ventricle is mildly dilated and hypocontractile Both atria are mildly dilated Aortic valve is trileaflet, mildly sclerotic with mild regurgitation Mildly thickened mitral leaflets with mild to moderate regurgitation Normal tricuspid valve with mild regurgitation. Estimated right ventricular systolic pressure is 30 mmHg Mildly dilated aortic root and ascending aorta Wall motion Left Ventricle The left ventricle is normal size. Left ventricular systolic function is mild to moderately decreased. There is normal left ventricular wall thickness. There is global hypokinesis of the left ventricle. Flattened septum consistent with right ventricular pressure overload. There is no ventricular septal defect visualized. LVEF is 45%. Right Ventricle The right ventricle is mildly dilated Right ventricle is mildly hypokinetic. The RVSP is 29.4 mmHg. Atria Left atrium is mildly dilated. Right atrium is mildly dilated. The interatrial septum is intact with no evidence for an atrial septal defect. Aortic Valve The aortic valve is mildly sclerotic Aortic valve is trileaflet. There is no aortic valvular stenosis. Mild aortic regurgitation. Mitral Valve Mildly thickened mitral leaflets No evidence of mitral valve stenosis. Mild to moderate mitral regurgitation. Tricuspid Valve The tricuspid valve is normal in structure. There is no tricuspid valve stenosis. Mild tricuspid regurgitation. Pulmonic Valve The pulmonary valve is normal in structure. There is no pulmonic valvular stenosis. Trace pulmonic regurgitation. Great Vessels Aortic root is mildly dilated. The ascending aorta is mildly dilated. Aortic arch is not well visualized. IVC is normal in size and collapses >50% with inspiration. Pericardium There is no pericardial effusion. 2D Dimensions IVSD d PLAX 1.02 cm M: 0.6-1.2LV Vol A2C d MOD 136.1 mL LVPW d PLAX 1.05 cm M: 0.6 - 1.2LV Vol A4C d MOD 159.6 mL LVID d PLAX 4.53 cm M: 4.2 - 5.8LA vol/ BSA A4C s A-L39.2 mL/m2 LVDs 3.70 cm M: 2.5 - 4.0LA Area A4C s MOD 28.17 cm2 Ao Root d 4.09 cm M: 3.1 - 3.7LV EF A4C MOD 35.6 % Ao Asc Diam d 3.64 cm M: 2.6 - 3.4LV EF A2C MOD 36.3 % LV EF Teichholz 36.9 %LV EF Biplane MOD 37.2 % LVEF (Winkler's)37.19 % M: 52 - 72SV54.23 mL LV Akgaot532.51 mL M: 62 - 150SV Index23.50 mL/m2 LV Volume Index45.24 mL/m2 M: 34 - 74 LV Vol Biplane MOD 145.8 mL FS17.60 % LV Diastology MV E' medial0.111 (>0.07 m/s)MV E Vmax 0.85 (0.4-1.3 m/s) LV E/e MED7.60 (<14) MV E' lateral0.157 (>0.1 m/s) LV E/e LAT5.40 (<14) MV E/E' medial 7.63 MV E/E' lateral5.40 Aortic Valve LVOT Area4.48 cm2AoV Area Vmax4.16 cm2 LVOT Vmax 0.54 m/sAoV Area/ BSA (Vmax)1.80 cm2/m2 LVOT Mean Long.0.37 m/sAVA Mean Long.4.08 cm2 LVOT Peak Grad 1.2 mmHgAVA Mean Long. Index1.77 cm2/m2 LVOT Mean Grad 0.6 mmHgAR DT 3419 msec LVOT VTI0.101 mAR PHT 992 msec LVOT Diam s 2.35 cm AoV Vmax0.58 m/s Velocity Ratio 0.93 AoV Mean Long.0.40 m/s AoV Peak Grad1.3 mmHg LVOT SV 45.14 mL AoV Mean Grad0.7 mmHg AoV VTI0.093 m AoV Area VTI4.87 cm2 AoV Area/ BSA (VTI)2.11 cm/m2 Mitral Valve MV DT 128 (160-240 msec) MV PHT37 msec MV Area PHT 5.91 cm2 Pulmonary Valve PV Vmax 0.68 (0.5-1.5 m/s)RVOT Peak Gr.0.44 mmHg PV Peak Grad 1.9 mmHgRVOT Vmax 0.33 m/s PV Mean Grad 1.0 mmHg PV VTI 0.128 m Tricuspid Valve TR Peak Grad 26.3 mmHgTR Vmax 2.57 m/s RA Pressure 3.00 mmHg RVSP (TR) 29.4 mmHg Anesthesia Assessment and Plan Anesthesia History Personal History: No History of Anesthesia Complications Family History: No Family History of Anesthesia Complications Exercise Tolerance Exercise Tolerance: Metabolic Equivalents>4 Pertinent Negatives Pertinent Negatives: No Symptoms of GERD, No Major Pulmonary Symptoms or Complaints and No History of CVA/TIA Cardiac & Pulmonary Exam Cardiac Exam: Normal S1/S2 Heart Sounds Pulmonary Exam: Clear Bilateral Breath Sounds Implantable Cardiac Device Does patient have a Pacemaker or an ICD?: No Airway Exam Known Difficult Airway: No Mallampati Class: 2 Mouth Opening: Normal (> 3cm) Thyromental Distance: Greater than 3 cm Neck Range of Motion: Full ROM Neck Circumference: Normal Teeth Condition: Normal Dentition ASA Classification ASA Score: ASA 3 Emergency Case?: No NPO Status NPO Status: NPO Clears >2 hours, Solids >8 hours Anesthesia Plan Resuscitation Status: Full Code Anesthesia Technique: General Anesthesia Airway Planned: Natural Airway Monitors Used: Standard Monitors
[2024-08-01 12:16] VITALS: BMI 25.8
--- NOTE | 2024-08-01 12:25 | BOWEL_PTH ---
PATIENT: Michele Anguiano LOC: [facility] U#:[id number] AGE/SX: 79/M ROOM: RE08/01/[address]: Ghanshyam Benitez MD : 1945 BED: DIS: 08/01/2024 SPEC #: [id number] RECD: 08/01/24 16:54 STATUS: ANAYA REQ #: [id number] KELTON: 08/01/24 12:[address]: Ghanshyam Benitez DEPT: Surgical Specimen RECD BY: Janell Mike ENTERED: 08/01/24 16:56 SP TYPE: Bowel OTHR DR: Johana Aguero Tissues: 1 - BIOPSY BOWEL Procedures: GROSS AND MICRO LEVEL 4 Comments: [id number]
[2024-08-01 12:34] VITALS: BP 105/73; PULSE 74; RESP 16; TEMP 36; O2SAT 97
--- NOTE | 2024-08-01 12:39 | W.ANESPOSTOP ---
Postoperative Evaluation Date, Time and Location Date Performed: 08/01/24 Time Performed: 12:39 Patient Location: Day Surgery Unit Vital Signs Most Recent Imported Vital Signs: Most Recent Vital Signs Temp Pulse Resp BP Pulse Ox 36.0 C L 74 16 105/73 97 08/01/24 12:34 08/01/24 12:34 08/01/24 12:34 08/01/24 12:34 08/01/24 12:34 Pain Score Most Recent Pain Score: Most Recent Pain Score Pain Level 0 08/01/24 12:34 Assessment Mental Status: Awake (Alert & Oriented to Patient Baseline) Airway and Respiratory Function: Patent airway with normal (patient baseline) respiratory exam Cardiovascular Function: Hemodynamically Stable Hydration Status: Adequately Hydrated Nausea & Vomiting: No Nausea or Vomiting Pain: Pt. Denies Any Pain Peripheral Nerve Block: Patient did not receive a nerve block
[2024-08-01 13:03] VITALS: BP 130/94; PULSE 57; RESP 18; TEMP 36.1; O2SAT 98
== END 2024-08-01 13:28 | disposition home or self-care (01) ==
LOC: SUR 10:46
PROVIDERS: PCP Internal Medicine; Visit Provider Surgery
PROC: 0DJD8ZZ Inspection of Lower Intestinal Tract, Via Natural or Artificial Opening Endoscopic (ICD-10-PCS; CPT 45378; principal; 2024-08-01 12:00)
DX: Z12.11 Encounter for screening for malignant neoplasm of colon (principal); I25.10 Atherosclerotic heart disease of native coronary artery without angina pectoris; D12.5 Benign neoplasm of sigmoid colon; K64.8 Other hemorrhoids; K57.30 Diverticulosis of large intestine without perforation or abscess without bleeding
CPT/HCPCS: 45380; 88305; J2003; J2704

== ENCOUNTER 2025-01-02 14:50 | Outpatient (REF) | payer MEDICARE, SELFPAY ==
[2025-01-02 15:01] LABS: HCT 51.5 % (40.0-50.0); HGB 17.2 g/dL (13.5-17.5); MCHC 33.4 % (32.0-36.0); MCV 96 fL (80-95); MPV 12.7 fL (8.0-11.0); Platelet Count 128 10^3/uL (130-400); RBC 5.37 10^6/uL (4.36-5.78); RDW 12.4 % (11.8-14.1); RDW-SD 43.9 fL; WBC 5.53 10^3/uL (4.4-10.8)
[2025-01-02 15:16] LABS: Hemoglobin A1C 6.2 % (<5.7)
[2025-01-02 15:39] LABS: ALT 45 U/L (16-63); AST 26 U/L (15-37); Albumin 3.8 g/dL (3.4-5.0); Alkaline Phosphatase 92 U/L (46-116); Anion Gap 4.2 mmol/L (3-11); BUN 20 mg/dL (7-18); Bilirubin, Total 1.4 mg/dL (0.2-1.0); CO2 31.8 mmol/L (21.0-32.0); Calcium 9.4 mg/dL (8.5-10.1); Calculated LDL 28 mg/dL (<100); Chloride 108 mmol/L (98-107); Cholesterol 100 mg/dL (<200); Estimated GFR 77.52 (mL/min/1.73m2); Glucose 118 mg/dL (74-106); HDL Cholesterol 44 mg/dL (>or=40); Potassium 4.4 mmol/L (3.5-5.1); Sodium 144 mmol/L (136-145); Triglyceride 143 mg/dL (<150)
== END 2025-01-02 14:51 | disposition home or self-care (01) ==
LOC: NCHCN 14:50
PROVIDERS: PCP Internal Medicine; Visit Provider Internal Medicine
DX: I10 Essential (primary) hypertension (principal); R73.03 Prediabetes
CPT/HCPCS: 80053; 80061; 85027; 83036

== ENCOUNTER 2025-07-04 19:32 | Outpatient (REF) | payer MEDICARE, SELFPAY ==
[2025-07-04 17:46] LABS: HCT 50.2 % (40.0-50.0); HGB 16.2 g/dL (13.5-17.5); MCH 31.5 pg (27.0-33.0); MCHC 32.3 % (32.0-36.0); MCV 98 fL (80-95); MPV 12.6 fL (8.0-11.0); Platelet Count 123 10^3/uL (130-400); RBC 5.15 10^6/uL (4.36-5.78); RDW 12.3 % (11.8-14.1); RDW-SD 44.4 fL; WBC 4.91 10^3/uL (4.4-10.8)
[2025-07-04 17:55] LABS: ALT 46 U/L (16-63); AST 26 U/L (15-37); Albumin 3.7 g/dL (3.4-5.0); Alkaline Phosphatase 84 U/L (46-116); Anion Gap 4.8 mmol/L (3-11); BUN 19 mg/dL (7-18); Bilirubin, Direct 0.3 mg/dL (0.0-0.2); Bilirubin, Total 1.3 mg/dL (0.2-1.0); CO2 30.2 mmol/L (21.0-32.0); Calcium 8.6 mg/dL (8.5-10.1); Chloride 108 mmol/L (98-107); Estimated GFR 90.58 (mL/min/1.73m2); Glucose 124 mg/dL (74-106); Potassium 4.3 mmol/L (3.5-5.1); Sodium 143 mmol/L (136-145); Total Protein 6.4 g/dL (6.4-8.2)
[2025-07-04 18:35] LABS: Hemoglobin A1C 6.0 % (<5.7)
== END 2025-07-04 19:33 | disposition home or self-care (01) ==
LOC: NCHCN 19:32
PROVIDERS: PCP Internal Medicine; Visit Provider Internal Medicine
DX: R73.03 Prediabetes (principal); R17 Unspecified jaundice; D75.1 Secondary polycythemia
CPT/HCPCS: 80053; 85027; 82248; 83036

== ENCOUNTER 2025-07-14 16:54 | Outpatient (REF) | payer MEDICARE, SELFPAY ==
[2025-07-14 17:09] LABS: Microalb ug/mg Crea 25.8 ug/mg Cr
== END 2025-07-14 16:55 | disposition home or self-care (01) ==
LOC: NCHCN 16:54
PROVIDERS: PCP Internal Medicine; Visit Provider Internal Medicine
DX: I10 Essential (primary) hypertension (principal)
CPT/HCPCS: 82043; 82570

== ENCOUNTER → 2025-07-26 01:25 | Outpatient (CLI) | payer MEDICARE, SELFPAY ==
--- NOTE | 2025-07-26 07:30 | DI.US_ITS ---
APPROVED REPORT EXAM: Comprehensive 2D, Doppler, and color-flow Echocardiogram Patient Location: Out-Patient Molder Fitting: Jahaira Simmons RDCS (AE) Indications: HFREF Other Information Study Quality: Adequate. Technically limited study due to body habitus. Conclusion Normal left ventricular wall thickness and chamber size. Ejection fraction is 45%. There is global hypokinesis Mildly dilated right ventricle with preserved systolic function Both atria are severely enlarged There are no structural valvular abnormalities Mild aortic and tricuspid regurgitation Moderate tricuspid regurgitation Estimated right ventricular systolic pressure is 32 mmHg Dilated aortic root Wall motion Left Ventricle The left ventricle is normal size. Left ventricular systolic function is mildly decreased. There is global hypokinesis of the left ventricle. There is no ventricular septal defect visualized. LVEF is 45%. Right Ventricle Right ventricle is mildly dilated. Right ventricular systolic function is grossly normal. Atria Left atrium is severely dilated. Right atrium is severely dilated. The interatrial septum is intact with no evidence for an atrial septal defect. Aortic Valve The aortic valve is normal in structure. Aortic valve is trileaflet. There is no aortic valvular stenosis. Mild aortic regurgitation. Mitral Valve The mitral valve is normal in structure. No evidence of mitral valve stenosis. Moderate mitral regurgitation. Tricuspid Valve The tricuspid valve is normal in structure. There is no tricuspid valve stenosis. Mild tricuspid regurgitation. The RVSP is 32.8_ mmHg. Pulmonic Valve The pulmonary valve is normal in structure. There is no pulmonic valvular stenosis. Trace pulmonic regurgitation. Great Vessels Aortic root is mildly dilated. Ascending aorta is not well visualized. Aortic arch is not well visualized. IVC is normal in size and collapses >50% with inspiration. Pericardium There is no pericardial effusion. 2D Dimensions IVSD d PLAX 1.10 cm M: 0.6-1.2 Ao Root d 4.02 cm M: 3.1 - 3.7 LVPW d PLAX 1.10 cm M: 0.6 - 1.2 LVID d PLAX 5.60 cm M: 4.2 - 5.8 LVDs 4.35 cm M: 2.5 - 4.0 LV EF Teichholz 44.4 % FS 22.31 % LV EDV (Teich) 153.7 mL LV ESV (Teich) 85.4 mL M-Mode TAPSE 1.47 cm (M/F) >1.7 Auto EF LV EDV A4C 128.2 mL LV EDV A2C 124.5 mL LV EDV BP 126.3 mL LV ESV A4C 71.2 mL LV ESV A2C 67.7 mL LV ESV BP 69.5 mL LVEF(%) A4C 44.4 % LVEF(%) A2C 45.6 % LVEF(%) BP 45.0 % LV SV A4C 57.0 ml LV SV A2C 56.8 ml LV SV BP 56.9 ml LV CO A4C 2.1 L/min LV CO A2C 2.2 L/min LV CO BP 2.1 L/min HR A4C 36.33 BPM HR A2C 38.46 BPM LV EDV Index (BP) LA Volume LA Length A4C 7.0 cm LA Length A2C 7.3 cm LA Area A4C s 30.17 cm2 LA Area A2C s 38.07 cm2 LA Vol A4C A-L 110.53 mL LA Vol A2C A-L 168.42 mL LA Vol Biplane A-L 139.5 mL LA Vol/BSA A4C A-L LA Vol/BSA A2C A-L LA Vol/BSA BP A-L 60.9 mL/m2 LA Vol A4C MOD 97.6 mL LA Vol A2C MOD 153.6 mL LA Vol BP MOD 124.9 mL RA Volume RA Area A4C 30.4 cm2 RA ESV A4C (A-L) 107.8mL RA Vol/BSA A4C A-L RA Length A4C 7.3 cm RA ESV A4C (MOD) 101.9mL LV Diastology MV E' medial 0.087 (>0.07 m/s) MV E Vmax 0.99 (0.4-1.3 m/s) MV E' lateral 0.126 (>0.1 m/s) Aortic Valve AoV Vmax 0.68 m/s LVOT Vmax 0.64 m/s AoV Peak Grad 36.5 mmHg LVOT Peak Grad 1.6 mmHg AoV Area (Vmax) 3.65 cm2 LVOT VTI 0.148 m AoV VTI 0.137 m LVOT Mean Grad 0.8 mmHg AoV Mean Long. 0.50 m/s LVOT SV 57.70 mL AoV Mean Grad 1.1 mmHg LVOT Diam s 2.20 cm AoV Area (VTI) 4.20 cm2 AV Regurg Peak Gr. 1.85 mmHg Velocity Ratio 0.94 AR Decel [place] 1.4m/sec2 AR DT 3076 msec AR PHT 892 msec AR Vmax 4.22 m/s Mitral Valve MV Area PHT 6.46 cm2 MR Vmax 1.14 m/s MR VTI 0.182 m MR Peak Grad 5.2 mmHg MR Mean Grad 1.3 mmHg Pulmonary Valve PV Vmax 0.81 (0.5-1.5 m/s) RVOT Vmax 0.43 m/s PV Peak Grad 2.6 mmHg RVOT Peak Gr. 0.7 mmHg PV Mean Long 0.59 m/s RVOT VTI 0.096 m PV Mean Grad 1.6 mmHg RVOT Mean Gr. 0.5 mmHg Tricuspid Valve RA Pressure 3.00 mmHg TR Vmax 2.73 m/s TV S' 0.09 m/s TR Peak Grad 29.8 mmHg RVSP (TR) 32.8 mmHg
== END ==
PROVIDERS: PCP Internal Medicine; Visit Provider Internal Medicine Cardiovascular Disease
DX: I50.20 Unspecified systolic (congestive) heart failure (principal); I08.2 Rheumatic disorders of both aortic and tricuspid valves
CPT/HCPCS: 93306